=== PATIENT | male | born 1935 | race Caucasian/White ===

== ENCOUNTER 2016-06-25 12:44 | Inpatient (IN) | payer MEDICARE ==
[~2016-06-25] VITALS: Ht 167.6 cm; Wt 86.8 kg
[~2016-06-25 12:44] MED LIST: ACET65TA OR; PRIL20CA OR; VITA250T OR; ZANT150T OR
[2016-06-25 13:33] LABS: BASO % 0.8 % (0.0-1.0); EOS # 0.2 K/mm3 (0.0-0.50); EOS % 3.1 % (0.0-3.0); LARGE UNSTAINED CELL # 0.1 K/mm3 (0.0-0.4); LYMPH # 1.4 K/mm3 (1.5-4.5); LYMPH % 20.8 % (24.0-44.0); MEAN CORPUSCULAR HEMOGLOBIN 32.3 pg (27.0-33.0); MEAN CORPUSCULAR VOLUME 97.8 fl (80.0-96.0); MONO # 0.3 K/mm3 (0.0-0.8); MONO % 4.7 % (0.0-5.0); NEUTROPHILS # 4.2 K/mm3 (1.8-7.7); NEUTROPHILS % 68.6 % (36.0-66.0); PLATELET COUNT, AUTOMATED 150 k/mm3 (150-450); RED CELL DISTRIBUTION WIDTH 12.9 % (11.5-14.5); WHITE BLOOD COUNT 6.1 K/mm3 (4.0-10.0)
[2016-06-25 13:42] LABS: INR 1.21
[2016-06-25 13:52] LABS: ANION GAP 6 MEQ/L (8-16); BLOOD UREA NITROGEN 20 MG/DL (7-18); CARBON DIOXIDE LEVEL 28 MEQ/L (21-32); CHLORIDE LEVEL 109 MEQ/L (98-107); CREATININE FOR GFR 1.32 MG/DL (0.70-1.30); GLOMERULAR FILTRATION RATE 55.3 (>35); GLUCOSE, FASTING 149 MG/DL (83-110); POTASSIUM SERUM 4.3 MEQ/L (3.5-5.1); SODIUM LEVEL 143 MEQ/L (136-145)
--- NOTE | 2016-06-25 14:43 | REP ---
Chest one-view HISTORY: Numbness Comparison: 04/12/2014 The lungs are clear. The heart is normal in size. The pulmonary vasculature is normal in appearance. A cardiac pacemaker is present. Impression: No acute disease. Signed by Tomer Leiva MD 06/25/2016 01:32 P
[2016-06-25] MEDS ORDERED: ONDANSETRON 4MG/2ML VIAL (J2405) IV PRN (14:45)
[2016-06-25] MEDS ORDERED: ACETAMINOPHEN TAB 650MG DOSE (2X325MG) PO PRN (14:45)
[2016-06-25] MEDS ORDERED: AMMO12LO TOP (15:28)
[2016-06-25] MEDS ORDERED: FLUO1CRE2 TOP (15:28)
[2016-06-25] MEDS ORDERED: BETA115CR TOP (15:28)
[2016-06-25] MEDS ORDERED: CO Q200C PO (15:28)
[2016-06-25] MEDS ORDERED: FLON1SPR (15:28)
[2016-06-25] MEDS ORDERED: RANI300T PO (15:28)
[2016-06-25] MEDS ORDERED: OCUVTAB PO (15:28)
[2016-06-25] MEDS ORDERED: VIAG100T PO (15:28)
[2016-06-25] MEDS ORDERED: MIDO5TA PO (15:28)
[2016-06-25] MEDS ORDERED: ASPI1TAB PO (15:28)
[2016-06-25] MEDS ORDERED: LATA5OPD OU (15:28)
[2016-06-25] MEDS ORDERED: MIRA33504 PO (15:28)
[2016-06-25] MEDS ORDERED: GENT0.3G OU (15:28)
[2016-06-25] MEDS ORDERED: TRAM50TA2 PO (15:28)
[2016-06-25] MEDS ORDERED: GLUC500T53 PO (15:28)
[2016-06-25] MEDS ORDERED: ATOR1TAB21 PO (15:28)
[2016-06-25] MEDS ORDERED: OMEP40CA2 PO (15:28)
[2016-06-25] MEDS ORDERED: traMADol 50 MG TAB PO PRN (15:30)
[2016-06-25] MEDS ORDERED: GUAI200T PO (15:33)
[2016-06-25] MEDS ORDERED: SUPE1TAB PO (15:33)
[2016-06-25] MEDS ORDERED: VISITAB6 PO (15:33)
[2016-06-25] MEDS ORDERED: ACET500C PO (15:33)
[2016-06-25] MEDS ORDERED: SAW450CA7 PO (15:33)
[2016-06-25] MEDS ORDERED: FIBE625T PO (15:33)
[2016-06-25] MEDS ORDERED: VITA-122 PO (15:33)
[2016-06-25] MEDS ORDERED: VITA100T PO (15:33)
[2016-06-25] MEDS ORDERED: VITMTA PO (15:33)
[2016-06-25] MEDS ORDERED: ALPRAZolam 0.5 MG TAB PO ONE (15:45)
--- NOTE | 2016-06-25 17:07 | EDDOCDS ---
Physician Documentation [facility] Name: Dipesh Ramirez Age: 81 yrs Sex: Male : 1935 Arrival Date: 06/25/2016 Time: 12:44 Bed 10 Private MD: Hamlet Mars H. Disposition: 06/25/16 14:29 Hospitalization ordered by Alcides Ford for Inpatient Admission. Preliminary diagnosis is Transient cerebral ischemic attack, unspecified. - Bed requested for PCU. - Status is Inpatient Admission. ead - Condition is Stable. - Problem is new. - Symptoms have improved. Historical: - Allergies: Amitriptyline; Augmentin; Biaxin; SULFA (SULFONAMIDES); - Home Meds: 1. aspirin 81 mg oral tab 2 tabs once daily 2. Flonase 50 mcg/actuation Nasal spsn 2 sprays once daily 3. latanoprost 0.005 % ophthalmic drop 1 drop once daily 4. Lipitor 20 mg Oral tab 1 tab once daily 5. midodrine 5 mg oral tab as needed 6. omeprazole 40 mg Oral cpDR 1 cap once daily 7. ranitidine HCl 300 mg Oral cap 1 cap once daily 8. tramadol 50 mg Oral tab 1 tab every 4-6 hours as needed 9. Viagra 100 mg Oral tab 1 tab as needed - PMHx: Atrial Fib; gastroparesis; GERD; hypotension; sick sinus syndrome; Spinal Stenosis; vocal cord granuloma; - PSHx: Arthroscopy. Shoulder- Left; Colon Resection; Hemorrhoidectomy; throat surgery; - Social history: Smoking status: Patient states former smoker of tobacco. No barriers to communication noted, The patient speaks fluent Frisian. - Family history: Not pertinent. - : The pt / caregiver states he / she is not on anticoagulants. Home medication list is obtained from the patient, [employer] import data. - Exposure Risk Screening:: None identified. Vital Signs: 06/25 12:46 BP 147 / 74; Pulse 70; Resp 16; Temp 97.6; Pulse Ox 100% ; Weight 86.18 kg / 189.99 cmb lbs; Height 5 ft. 6 in. (167.64 cm); Pain 0/10; 13:08 BP 164 / 75 (auto/); mcp 13:10 Pulse 56 MON; Pulse Ox 99% ; mcp 13:38 BP 144 / 70 (auto/); mcp 13:38 Pulse 58 MON; Pulse Ox 97% ; mcp 14:08 BP 174 / 78 (auto/); mcp 14:09 Pulse 60 MON; Pulse Ox 98% ; mcp 14:38 BP 158 / 75 (auto/); mcp 14:38 Pulse 58 MON; Pulse Ox 98% ; mcp 16:38 BP 142 / 72; Pulse 58 MON; Resp 18; Temp 97.1(O); Pulse Ox 96% on R/A; Pain 0/10; ead 17:02 BP 137 / 98 (auto/); ead 17:04 Pulse 70 MON; Resp 18; Pulse Ox 96% ; ead 12:46 Body Mass Index 30.67 (86.18 kg, 167.64 cm) cmb MDM: 13:16 Market Development Specialist/Pulse Ox/q 15 min VS ordered. sd1 13:16 IV Saline Lock ordered. sd1 13:16 Rhythm Strip to chart ordered. sd1 13:17 Basic Metabolic Profile Ordered. EDMS 13:17 CBC with Diff Ordered. EDMS 13:17 Partial Thromboplastin Time Ordered. EDMS 13:17 Prothrombin Time Profile\E\INR Ordered. EDMS 13:18 Chest, 1 View Ordered. EDMS 13:18 Type & Screen Ordered. EDMS 13:18 CT Head Without Contrast Ordered. EDMS 13:18 ECG WITH READING ER PHYS+CARDIAG ordered. EDMS 14:10 Basic Metabolic Profile Reviewed. sd1 14:10 CBC with Diff Reviewed. sd1 14:10 Prothrombin Time Profile\E\INR Reviewed. sd1 14:10 Partial Thromboplastin Time Reviewed. sd1 14:13 BED REQUEST+ADM ordered. EDMS 14:33 Admission / Observation Status ordered. EDMS 14:53 REGULAR DIET ordered. EDMS 14:53 MRI Brain W/CON Ordered. EDMS 14:54 MRA BRAIN W/O CONTRAST Ordered. EDMS 14:55 Duplex,carotid (complete) Ordered. EDMS 14:55 ECHOCARD,DOPPLER/COLOR FLOW ordered. EDMS 15:30 Financial registration complete. gjb 15:55 PHYSICAL THERAPY EVAL & TREAT ordered. EDMS 15:58 [facility] [place] Agreement was scanned into [employer] and attached to record. gjb Signatures: Dispatcher [employer] EDMS Adelina Hensley MD MD sd1 Deneen Holden, RN RN Meme Beauchamp RN RN ead Beck, Gabriela gjb Gosselin, Lisa, RN RN lmg The chart was reviewed and I authenticate all verbal orders and agree with the evaluation and treatment provided.Corrections: (The following items were deleted from the chart) 14:46 13:16 Accucheck ordered. sd1 [facility] Attachments: 15:58 [facility] [place] Agreement clarisa MTDD
--- NOTE | 2016-06-25 17:07 | EDDOCDS ---
Nurse's Notes [facility] Name: Dipesh Ramirez Age: 81 yrs Sex: Male : 1935 Arrival Date: 06/25/2016 Time: 12:44 Bed 10 Private MD: Hamlet Mars H. Diagnosis: Transient cerebral ischemic attack, unspecified Presentation: 06/25 12:47 Presenting complaint: Patient states: he has had numbness of his face and left arm kcs since last night. Has a history of a fib and is only on ASA now. Had a bad night because he can feel his pacer running constantly. Feels lightheaded. and has numbness and tingling in the left side of his face. Didn't come in last night because for the last 5 years he has had many similar bouts. Adult Sepsis Screening: The patient does not have new or worsening altered mentation. Patient's respiratory rate is less than 22. Systolic blood pressure is greater than 100. Patient has a qSOFA score of 0- Negative Sepsis Screen. Suicide/Homicide risk assessment- the patient denies having any suicidal and/or homicidal ideations and does not present with any other emotional, behavioral or mental health complaints. 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 Transition of care: patient was not received from another setting of care. 12:47 Acuity: CHRISTY Level 3 kcs 12:47 Method Of Arrival: Walkin/Carried/Asstd kcs Triage Assessment: 12:54 General: Appears comfortable, well developed, well nourished, well groomed, Behavior is kcs cooperative, flat. Pain: Denies pain. Neurological: Level of Consciousness is awake, alert. Respiratory: Airway is patent Respiratory effort is even, unlabored, Respiratory pattern is regular, symmetrical. Derm: Skin is intact, is healthy with good turgor, Skin is dry, Skin is normal. Historical: - Allergies: Amitriptyline; Augmentin; Biaxin; SULFA (SULFONAMIDES); - Home Meds: 1. aspirin 81 mg oral tab 2 tabs once daily 2. Flonase 50 mcg/actuation Nasal spsn 2 sprays once daily 3. latanoprost 0.005 % ophthalmic drop 1 drop once daily 4. Lipitor 20 mg Oral tab 1 tab once daily 5. midodrine 5 mg oral tab as needed 6. omeprazole 40 mg Oral cpDR 1 cap once daily 7. ranitidine HCl 300 mg Oral cap 1 cap once daily 8. tramadol 50 mg Oral tab 1 tab every 4-6 hours as needed 9. Viagra 100 mg Oral tab 1 tab as needed - PMHx: Atrial Fib; gastroparesis; GERD; hypotension; sick sinus syndrome; Spinal Stenosis; vocal cord granuloma; - PSHx: Arthroscopy. Shoulder- Left; Colon Resection; Hemorrhoidectomy; throat surgery; - Social history: Smoking status: Patient states former smoker of tobacco. No barriers to communication noted, The patient speaks fluent [place]. - Family history: Not pertinent. - : The pt / caregiver states he / she is not on anticoagulants. Home medication list is obtained from the patient, [employer] import data. - Exposure Risk Screening:: None identified. Screenin:52 Screening information is obtained from the patient. Fall risk: No risks identified. mcp Assistance ADL's: requires no assistance with activities of daily living. Abuse/DV Screen: The patient / caregiver reports he/she is: not in a situation that causes fear, pain or injury. Nutritional screening: No deficits noted. home support is adequate. Assessment: 13:20 General: Appears in no apparent distress, Behavior is cooperative. Pain: Denies pain. mcp Neurological: Level of Consciousness is awake, alert, Oriented to person, place, time, Moves all extremities. Speech is normal, Facial symmetry appears normal, Reports numbness. Cardiovascular: Rhythm is atrial fibrillation. Respiratory: Airway is patent Respiratory effort is even, unlabored, Breath sounds are clear bilaterally. Derm: Skin is pink, warm & dry. 13:45 Cardiovascular: Rhythm is ventricular pacer with capture. mcp 14:00 General: Appears in no apparent distress, Behavior is cooperative. Cardiovascular: mcp Rhythm is atrial fibrillation. Respiratory: Airway is patent Respiratory effort is even, unlabored. 14:52 General: Appears in no apparent distress, comfortable, Behavior is cooperative. mcp Neurological: Level of Consciousness is awake, alert, Oriented to person, place, time, Moves all extremities. Speech is normal. Cardiovascular: Rhythm is atrial fibrillation. Respiratory: Airway is patent Respiratory effort is even, unlabored. Derm: Skin is pink, warm & dry. 15:35 General: Appears in no apparent distress, comfortable, Behavior is cooperative, Dr. alma rosa Ford at bedside to assess pt. . Respiratory: Airway is patent Respiratory effort is even, unlabored. Derm: Skin is pink, warm & dry. 15:47 General: pacemaker cards faxed to MRI. . ead 16:40 General: Appears in no apparent distress, comfortable, Behavior is appropriate for age, ead cooperative. Neurological: Level of Consciousness is awake, alert, Oriented to person, place, time. Respiratory: Airway is patent Respiratory effort is even, unlabored. Derm: Skin is pink, warm & dry. Vital Signs: 12:46 BP 147 / 74; Pulse 70; Resp 16; Temp 97.6; Pulse Ox 100% ; Weight 86.18 kg; Height 5 cmb ft. 6 in. (167.64 cm); Pain 0/10; 13:08 BP 164 / 75 (auto/); [facility] 13:10 Pulse 56 MON; Pulse Ox 99% ; [facility] 13:38 BP 144 / 70 (auto/); [facility] 13:38 Pulse 58 MON; Pulse Ox 97% ; [facility] 14:08 BP 174 / 78 (auto/); [facility] 14:09 Pulse 60 MON; Pulse Ox 98% ; [facility] 14:38 BP 158 / 75 (auto/); [facility] 14:38 Pulse 58 MON; Pulse Ox 98% ; [facility] 16:38 BP 142 / 72; Pulse 58 MON; Resp 18; Temp 97.1(O); Pulse Ox 96% on R/A; Pain 0/10; ead 17:02 BP 137 / 98 (auto/); ead 17:04 Pulse 70 MON; Resp 18; Pulse Ox 96% ; ead 12:46 Body Mass Index 30.67 (86.18 kg, 167.64 cm) cmb Vitals: 12:47 Log In Time: June 25, 2016 at 12:45. RN notified that patient meets Red Flag cmb criteria. ED Course: 12:44 Patient visited by Jeannine Martínez. cmb 12:44 Patient moved to Waiting cmb 12:46 Hamlet Mars is Private Physician. cmb 12:51 Triage Initiated kcs 13:00 Patient moved to Pre RCE kcs 13:03 Patient moved to 10 ar3 13:20 Inserted saline lock: 20 gauge in left antecubital area and blood collected. The [facility] patient tolerated the procedure well. Labs drawn. (by ED staff). Sent per order to lab. 13:23 Basic Metabolic Profile Sent. mcp 13:23 CBC with Diff Sent. mcp 13:23 Partial Thromboplastin Time Sent. mcp 13:23 Prothrombin Time Profile\E\INR Sent. mcp 13:37 EKG done. (by ED staff). Reviewed by Adelina Hensley MD. ct3 13:38 Patient visited by Azucena Segovia PCA. ct3 13:39 Adelina Hensley MD is Attending Physician. sd1 13:52 Patient visited by Adelina Hensley MD. sd1 14:29 Alcides Ford DO is Hospitalizing Provider. sd1 14:52 The patient / caregiver is instructed regarding the plan of care and ED course. Patient mcp has correct armband on for positive identification. Placed in gown. Bed in low position. Call light in reach. Side rails up X2. improvement specialist on. Pulse ox on. NIBP on. 14:53 Patient visited by Emely Larry, RAY. [facility] 14:55 Patient visited by Emely Larry RN. [facility] 15:01 Meme Ramsey,RAY is Primary Nurse. ead 15:08 Chest, 1 View Returned. EDMS 15:58 [facility] Payment Agreement was scanned into [employer] and attached to record. gjb 16:51 No procedures done that require assistance. ead Order Results: Lab Order: Basic Metabolic Profile; SPEC'M 06/25/16 13:18 Test: GLUCOSE, FASTING; Value: 149; Range: 83-110; Abnormal: Above high normal; Units: MG/DL; Status: F Test: BLOOD UREA NITROGEN; Value: 20; Range: 7-18; Abnormal: Above high normal; Units: MG/DL; Status: F Test: CREATININE FOR GFR; Value: 1.32; Range: 0.70-1.30; Abnormal: Above high normal; Units: MG/DL; Status: F Test: GLOMERULAR FILTRATION RATE; Value: 55.3; Range: >35; Status: F Test: SODIUM LEVEL; Value: 143; Range: 136-145; Units: MEQ/L; Status: F Test: POTASSIUM SERUM; Value: 4.3; Range: 3.5-5.1; Units: MEQ/L; Status: F Test: CHLORIDE LEVEL; Value: 109; Range: 98-107; Abnormal: Above high normal; Units: MEQ/L; Status: F Test: CARBON DIOXIDE LEVEL; Value: 28; Range: 21-32; Units: MEQ/L; Status: F Test: ANION GAP; Value: 6; Range: 8-16; Abnormal: Below low normal; Units: MEQ/L; Status: F Test: CALCIUM LEVEL; Value: 9.0; Range: 8.8-10.2; Units: MG/DL; Status: F Test Note: ; Units are mL/min/1.73 m2 Chronic Kidney Disease Staging per NKF: Stage I & II GFR >=60 Normal to Mildly Decreased Stage III GFR 30-59 Moderately Decreased Stage IV GFR 15-29 Severely Decreased Stage V GFR <15 Very Little GFR Left ESRD GFR <15 on PACKAGE CAR DRIVER Lab Order: CBC with Diff; SPEC'M 06/25/16 13:18 Test: WHITE BLOOD COUNT; Value: 6.1; Range: 4.0-10.0; Units: K/mm3; Status: F Test: RED BLOOD COUNT; Value: 4.37; Range: 4.30-6.10; Units: M/mm3; Status: F Test: HEMOGLOBIN; Value: 14.1; Range: 14.0-18.0; Units: g/dl; Status: F Test: HEMATOCRIT; Value: 42.7; Range: 42.0-52.0; Units: %; Status: F Test: MEAN CORPUSCULAR VOLUME; Value: 97.8; Range: 80.0-96.0; Abnormal: Above high normal; Units: fl; Status: F Test: MEAN CORPUSCULAR HEMOGLOBIN; Value: 32.3; Range: 27.0-33.0; Units: pg; Status: F Test: MEAN CORPUSCULAR HGB CONC; Value: 33.0; Range: 32.0-36.5; Units: g/dl; Status: F Test: RED CELL DISTRIBUTION WIDTH; Value: 12.9; Range: 11.5-14.5; Units: %; Status: F Test: PLATELET COUNT, AUTOMATED; Value: 150; Range: 150-450; Units: k/mm3; Status: F Test: NEUTROPHILS %; Value: 68.6; Range: 36.0-66.0; Abnormal: Above high normal; Units: %; Status: F Test: LYMPH %; Value: 20.8; Range: 24.0-44.0; Abnormal: Below low normal; Units: %; Status: F Test: MONO %; Value: 4.7; Range: 0.0-5.0; Units: %; Status: F Test: EOS %; Value: 3.1; Range: 0.0-3.0; Abnormal: Above high normal; Units: %; Status: F Test: BASO %; Value: 0.8; Range: 0.0-1.0; Units: %; Status: F Test: LARGE UNSTAINED CELL %; Value: 2.0; Range: 0.0-4.0; Units: %; Status: F Test: NEUTROPHILS #; Value: 4.2; Range: 1.8-7.7; Units: K/mm3; Status: F Test: LYMPH #; Value: 1.4; Range: 1.5-4.5; Abnormal: Below low normal; Units: K/mm3; Status: F Test: MONO #; Value: 0.3; Range: 0.0-0.8; Units: K/mm3; Status: F Test: EOS #; Value: 0.2; Range: 0.0-0.50; Units: K/mm3; Status: F Test: BASO #; Value: 0.0; Range: 0.0-0.2; Units: K/mm3; Status: F Test: LARGE UNSTAINED CELL #; Value: 0.1; Range: 0.0-0.4; Units: K/mm3; Status: F Lab Order: Partial Thromboplastin Time; SPEC'M 06/25/16 13:18 Test: PARTIAL THROMBOPLASTIN TIME; Value: 28.7; Range: 26.6-37.1; Units: SECONDS; Status: F Lab Order: Prothrombin Time Profile\E\INR; SPEC'M 06/25/16 13:18 Test: PROTHROMBIN TIME; Value: 15.4; Range: 12.3-14.5; Abnormal: Above high normal; Units: SECONDS; Status: F Test: INR; Value: 1.21; Status: F Test Note: ; THERAPUTIC HUMAN INR VALUES INDICATIONS NORMAL RANGES PROPHYLAXIS/TREATMENT OF: VENOUS THROMBOSIS 2.0-3.0 PULMONARY EMBOLISM 2.0-3.0 PREVENTION OF SYSTEMIC EMBOLISM FROM: TISSUE HEART VALVES 2.0-3.0 ACUTE MYOCARDIAL INFARCTION 2.0-3.0 VALVULAR HEART DISEASE 2.0-3.0 ATRIAL FIBRILLATION 2.0-3.0 MECHANICAL VALVES(HIGH RISK) 2.5-3.5 RECURRENT MYOCARDIAL INFARCTION 2.5-3.5 Lab Order: Type & Screen; SPEC'M 06/25/16 15:19 Test: BLOOD TYPE; Value: O POS; Status: F Test: AB SCREEN (INDIRECT SHANNON)GEL; Value: NEGATIVE; Status: F Radiology Order: Chest, 1 View Test: Chest, 1 View REASON FOR EXAMINATION: numbness; Chest one-view; ; HISTORY: Numbness; ; Comparison: 04/12/2014; ; The lungs are clear. The heart is normal in size. The pulmonary vasculature is; normal in appearance. A cardiac pacemaker is present.; ; Impression: No acute disease.; ; ; Signed by; Tomer Leiva MD 06/25/2016 01:32 P; Outcome: 14:29 Decision to Hospitalize by Provider. sd1 16:40 CT Study completed. ead 16:51 Discharge Assessment: Patient awake and alert. obeys commands, Oriented to person, ead place and time. patient administered narcotics - no. The following High Risk Discharge criteria are identified: None. Admitted to PCU accompanied by nurse, via stretcher, on monitor, with chart. Condition: stable. Property :Personal belongings accompany Pt. 17:07 Patient left the ED. ead Signatures: Dispatcher [employer] Adelina Carlos MD MD sd1 Deneen Holden RN RN kcs Peters, Mary, RN RN mcp Rabon, Alicia, EMERGENCY MANAGEMENT COORDINATOR EMERGENCY MANAGEMENT COORDINATOR ar3 Azucena Segovia, EMERGENCY MANAGEMENT COORDINATOR EMERGENCY MANAGEMENT COORDINATOR ct3 Jeannine Martínez Emily, RN RN ead Beck, Gabriela gjb MTDD
[2016-06-25 17:32] VITALS: BP 142/82
[2016-06-25] MEDS: VITAMIN D 1,000 INTERNATIONAL UNITS TABLET PO SCH (18:19)
--- NOTE | 2016-06-25 18:23 | REP ---
CT brain without contrast 06/25/2016 Indication: Paresthesias Comparison: CT brain 09/01/2010 Findings: There is mild generalized cerebral volume loss. Small amount of periventricular and subcortical white matter hypodensities are present consistent with chronic small vessel ischemic disease. There is no intracranial hemorrhage or extra-axial fluid collection. There is no midline shift or mass effect. There are moderate bilateral carotid siphon calcifications. There is patchy opacification of bilateral ethmoid sinuses, left greater than right. Visualized portions of the mastoid sinuses are clear bilaterally. The skull is without fracture. Impression: mild generalized cerebral volume loss with chronic small vessel ischemic disease. No acute intracranial pathology or hemorrhage. Bilateral moderate opacification of the ethmoid sinuses, left greater than right consistent with bilateral ethmoid sinusitis Signed by Kortney Hawley MD 06/25/2016 06:13 P
--- NOTE | 2016-06-25 18:34 | HPE ---
DATE OF ADMISSION: 06/25/2016 PRIMARY CARE PROVIDER: Dr. Hamlet Mars TEARER PRESS CLIPPING: Dr. Clifton NEUROLOGIST: Dr. Andujar CHIEF COMPLAINT: Left-sided facial numbness, left arm numbness and weakness occurred last night, history of atrial fibrillation currently only on aspirin 162 mg daily. Apparently, he had a bad episode on Eliquis with quite a bit of hematuria and Dr. Clifton had switched him recently to the aspirin. He feels that his symptomatology is much improved. He has no slurred speech. No difficulty with swallow. Appetite has been good. No mental status changes. He is accompanied here with his and she feels that his symptomatology is almost completely resolved at this point. No chest pain, shortness of breath, cough, or productive sputum. No nausea or vomiting. PAST MEDICAL HISTORY: 1. History of atrial fibrillation, sick sinus syndrome status post pacer which is supposedly MRI, MRA compatible. He does have a copy of the card for the chart. 2. Gastroparesis. 3. Gastroesophageal reflux disease (GERD). 4. History of hypotension. 5. Sick sinus syndrome. 6. Spinal stenosis. 7. Vocal cord granuloma. 8. Seasonal allergies. PAST SURGICAL HISTORY: 1. Left shoulder arthroscopy. 2. Colon resection/hemorrhoidectomy. 3. Throat surgery. SOCIAL HISTORY: He is a former smoker. No alcohol. No recent travel. No sick contacts. FAMILY HISTORY: Noncontributory. ALLERGIES: AMITRIPTYLINE, AUGMENTIN, BIAXIN, SULFA. HOME MEDICATIONS: - aspirin 162 mg daily - Flonase nasal spray two sprays once daily - latanoprost ophthalmic drops one drop in each eye daily - Lipitor 20 mg daily - midodrine 5 mg daily as needed - omeprazole 40 mg daily - ranitidine 300 mg daily - tramadol 50 mg every 4-6 hours as needed for back pain - Viagra 100 mg daily as needed REVIEW OF SYSTEMS: CONSTITUTIONAL: He denies fevers, chills, rigors, or change in appetite. HEENT: He did have some left-sided facial numbness which seems to have abated. No difficulty with speech or swallow. PULMONARY: No productive sputum, cough, or hemoptysis. No shortness of breath. CARDIOVASCULAR: History of atrial fibrillation, currently only on aspirin. No paroxysmal nocturnal dyspnea (PND), orthopnea, or chest pain. He did feel that his pacemaker was producing more heartbeats last evening and apparently he is under the impression that this is a demand pacing. GASTROINTESTINAL: No nausea, vomiting, or diarrhea. Appetite is good. He denies any hematochezia or melena. GENITOURINARY: No dysuria, frequency, or hematuria. MUSCULOSKELETAL: No bone, muscle or joint pain, swelling, or erythema. He does state that he had some left arm and leg numbness with some slight weakness but feels that this is almost back to his baseline. NEUROLOGIC: As indicated above, left sided facial and arm numbness and weakness which is almost completely resolved. No paralysis. LYMPHATICS: No lumps, bumps or swelling in the neck, axilla or groin. No fevers, night sweats, or weight loss. ENDOCRINE: Negative for diabetes. Negative for thyroid disorder. HEMATOLOGY: No bleeding or bruising disorder. No prior history of venous thromboembolism. ONCOLOGY: No history of cancer. PSYCHIATRIC: No history of depression or anxiety. No suicidal ideation. No audio or visual hallucinations. Ten-point review of systems complete, pertinent positives are listed. PHYSICAL EXAMINATION: VITAL SIGNS: Temperature is 97.6, respiratory rate is 16, pulse 70, blood pressure 147/74, SPO2 is 100% on room air. GENERAL: The patient appears to be in no acute distress. He is alert and oriented. HEENT: Unremarkable. No carotid bruits. LUNGS: Clear. HEART: Regular rate and rhythm. ABDOMEN: Soft. EXTREMITIES: No edema. No calf tenderness. Computer Sales[employer] strength is equal. Motor is equal bilaterally with 5/5 strength. NEUROLOGIC: Cranial nerves II-XII grossly intact. He does not demonstrate any gross motor sensory abnormalities. No deficits noted at this time. Babinski is equivocal. LABORATORY DATA AND DIAGNOSTICS: White count 6.1, hemoglobin 14.1, platelets 150,000. Sodium is 143, potassium 4.3, chloride 109, bicarbonate 28, anion gap 6, BUN is 20, creatinine 1.32, glucose 149, calcium 9.0, INR is 1.21. Chest x-ray is clear with no acute cardiopulmonary disease. Head CT shows mild generalized cerebral volume loss with chronic small vessel ischemic disease. No acute intracranial pathology or hemorrhage, bilateral moderate opacification of the ethmoid sinus, left greater than right consistent with bilateral ethmoid sinusitis, otherwise no acute findings. Please note that the 12-lead EKG shows first-degree atrioventricular (AV) block with ventricular rate of 55. No acute ST-T wave abnormalities. IMPRESSION: Mr. Ramirez is a pleasant 81-year-old gentleman with underlying history of atrial fibrillation. He does have a carotid artery stenosis on a previous carotid ultrasound done several years ago with stenosis of 50% bilaterally. He will need to be admitted for further workup of possible transient ischemic attack (TIA). PROBLEM LIST: 1. Transient ischemic attack (TIA). 2. Left-sided facial and arm numbness/weakness. 3. History of atrial fibrillation with sick sinus syndrome and pacemaker. Apparently, this is likely paroxysmal and not currently on anticoagulation due to hematuria on Eliquis, currently on aspirin. 4. Gastroesophageal reflux disease (GERD). 5. Hypotension. 6. Sick sinus syndrome. 7. Spinal stenosis. 8. History of vocal cord granuloma. 9. Seasonal allergies. PLAN: The patient will be admitted to the progressive care unit (PCU) on telemetry. We will go ahead and check an MRI/MRA of the brain since his pacer is compatible. An ultrasound of the carotids and 2-D echocardiogram is pending as well. I did consult Dr. Andujar who has agreed to see the patient on consultation. We will await any further changes in his medications. Currently, he is on aspirin 162 mg daily and I did reach out to his primary care provider Dr. Mars as well as Dr. Clifton to let them know that the patient is being hospitalized for the current workup. Deep vein thrombosis (DVT) prophylaxis with subcutaneous heparin. Also noted that the patient's NIH stroke score was 1 and he is outside any window and t-PA is not advised for the patient. His current prognosis does appear to be good. We will go ahead and finish the workup. We will also have physical therapy evaluate him as well.
[2016-06-25 20:31] VITALS: BP 142/73
[2016-06-25] MEDS: ATORVASTATIN 20 MG TAB PO SCH (22:04)
[2016-06-25] MEDS: HEPARIN SOD (PORCINE) 5000 UNITS/ML VIAL SC SCH (22:04)
[2016-06-25] MEDS: DOCUSATE SODIUM 100 MG CAP PO SCH (22:04)
[2016-06-25] MEDS: raNITIdine SYRUP 150 MG/10 ML UDC PO SCH (22:05)
[2016-06-25 23:10] LABS: TOTAL PROTEIN 5.9 GM/DL (6.4-8.2)
[2016-06-25] MEDS ORDERED: POLYVINYL ALCOHOL OPHTH SOLN 15 ML(LIQUITEARS) OU PRN (23:15)
--- NOTE | 2016-06-25 23:45 | REP ---
Clinical: Transient ischemic attack. Technique: Beltran scale and color Doppler evaluation using linear high frequency transducer. Comparison: Multiple examinations through 2007. Findings: Two-dimensional beltran scale and color images demonstrate intimal thickening to the common carotid arteries with mixed atheromatous plaque predominantly involving the right carotid bulb and proximal internal carotid arteries and to a much lesser extent the bilateral common carotid arteries and left proximal internal carotid artery. Color images demonstrate mild narrowing through the right carotid bulb and internal carotid artery. Doppler interrogation demonstrates normal arterial wave patterns and velocities with moderate spectral broadening. Normal flow direction is appreciated in the bilateral vertebral arteries. RIGHT (cm/s) LEFT (cm/s) ICA peak systolic velocity 39.2 36.5 ICA diastolic velocity 9.0 10.3 ECA peak systolic velocity 40.7 63.2 CCA peak systolic velocity 61.4 55.9 ICA/CCA ratio 0.64 0.65 Impression: Based on set standards narrowing falls within the less than 50% range (right greater than left) . However, by visual inspection I suspect velocities underestimate narrowing through the right carotid bulb/internal carotid artery which may fall in the 50 - 69% range. MRA may better estimate actual luminal narrowing. Signed by Agapito Lopez MD 06/25/2016 11:37 P
[2016-06-25 23:57] VITALS: BP 170/78
[2016-06-25 23:57] LABS: ERYTHROCYTE SEDIMENTATION RATE 4 mm/hr (0-20)
[2016-06-26 04:36] VITALS: BP 135/71
--- NOTE | 2016-06-26 04:45 | CR ---
DATE OF CONSULTATION: 06/25/2016 REFERRING PHYSICIAN: Dr. Ford. HISTORY: The patient is an 81-year-old male who presents to the emergency room (ER) here at the [facility] secondary to complaints of left facial and arm paresthesias with mild weakness of the left arm. According to the patient, his symptom started on Friday, which is about 3 days ago. At that time , he did experience some chest palpitations. In the past, he did have some associated tingling in his left arm whenever he had chest palpitations. He did not pay attention to it and he woke up this morning at about 3 o'clock and noticed that he had increased tingling sensation in his left hand extending into the forearm going up to the elbow. He also had some tingling sensation on his left side of the face at that time. He did not have any symptoms in his left leg. He denies having any associated headache, dizzy spells, vertigo, diplopia, blurred vision, dysarthria and dysphagia. He was fairly stable on his feet as well. Because his father had a stroke at this age, he came to the ER at the [facility]. He is now in the ER with the complaint of warm sensation that he is experiencing on the left side of his face. The numbness that he had associated with tingling has, however, resolved from the face. He does feel mildly weak and tired in his left arm. There is some tingling sensation still in his left forearm extending into his hand. He does get dizzy intermittently, but beyond that, he does not have any other neurological complaints. Overall, he feels that he is better than before but his symptoms are still there. He has known history of atrial fibrillation for which he is currently on aspirin 162 mg daily. He was on Eliquis, but it was discontinued because of hematuria. His other medications include Flonase nasal spray, Lipitor 20 mg daily, midodrine, omeprazole, ranitidine and tramadol 50 mg 4-6 hours as necessary for pain. He has known history of chronic low back pain for which he has been worked up during the past. Currently, his low back pain does not seem to be bothering him. There is no complaint of any neck or shoulder pain. He denies pain in his arms otherwise. He has not noticed resting or postural tremors of the hands. His CT scan of the brain does show small vessel ischemic disease. He has not been able to get his MRI of the brain yet because of his pacemaker. PAST MEDICAL HISTORY: 1. Orthostatic hypotension. 2. Gastroesophageal reflux disease (GERD). 3. Gastroparesis. 4. Sick sinus syndrome 5. Lumbosacral spinal stenosis. 6. Vocal cord granuloma. 7. Seasonal allergies. 8. Left shoulder surgery. 9. Colon resection/hemorrhoidectomy. FAMILY HISTORY: The patient's mother and father are both . His father suffered from a stroke when he was about 83 years old. PERSONAL AND SOCIAL HISTORY: The patient lives with his . There is no history of smoking or alcohol abuse at the present time. All other systems were reviewed and found to be noncontributory. PHYSICAL EXAMINATION: On examination, the patient does not appear in any discomfort. He is pleasant to interact with. His posture is normal. His blood pressure is 140/70. Pulse is 60 per minute. Respirations are 18 per minute. His temperature is 98.4 degrees Fahrenheit. He is 5 feet 6 inches tall. He weighs about 86.8 kg. His neck is supple. There is no carotid bruit audible. His ear, nose and throat examination is normal. His lungs are clear to auscultation. His heart is regular in rhythm. His abdomen is soft and nondistended. There is no ankle edema seen. The peripheral pulses are normally palpable. Neurologically, he is oriented to time and place. His speech is fluent. Extraocular movements are intact. There is no horizontal or vertical nystagmus seen. His pupils are about 3 mm in size and reactive to light. The consensual light reflex is present bilaterally. Visual perez appear to be within normal limits. His face is symmetrical. His tongue is midline. His motor examination does show mild left-sided pronator drift. He is not weak otherwise both in his upper and lower extremities. He does not have any resting or postural tremors of the hands. His muscle tone is normal. The sensory examination is also within normal limits. Deep tendon reflexes are 2+ and symmetrical with an equivocal plantar reflex on the right side. Romberg' s testing is not performed. His gait is not tested. DIAGNOSTIC STUDIES: The patient's CBC shows a white cell count of 6100, hemoglobin 14.1, hematocrit 42.7, and platelets 150,000. His sodium is 143, potassium 4.3, BUN 20, and creatinine 1.32. His calcium level is 9. His prothrombin time is 1.21, INR. His CT scan of the brain, which was performed this morning, does show evidence of small vessel ischemic disease. There is also mild generalized cerebral volume loss. ASSESSMENT: 1. Left facial and arm paresthesias. 2. Mild left arm weakness. 3. R/O right CVA. 4. History of atrial fibrillation. 5. History of chronic low back pain. PLAN: 1. MRI/MRA of the brain if his pacemaker is compatible with MRI machine. 2. ESR, KALYAN, rheumatoid factor and lupus anticoagulant. 3. Vitamin B1, B6 and B12 levels. 4. Carotid duplex study. 5. Aspirin 162 mg by mouth daily. 7. Continue with other care. Thank you very much for this consultation. NITA
[2016-06-26 05:54] LABS: MEAN CORPUSCULAR HEMOGLOBIN 32.5 pg (27.0-33.0); MEAN CORPUSCULAR VOLUME 98.6 fl (80.0-96.0); RED CELL DISTRIBUTION WIDTH 12.8 % (11.5-14.5); WHITE BLOOD COUNT 6.4 K/mm3 (4.0-10.0)
[2016-06-26 06:05] LABS: ALBUMIN 3.2 GM/DL (3.2-5.2); CALCIUM LEVEL 8.4 MG/DL (8.8-10.2); CREATININE FOR GFR 1.32 MG/DL (0.70-1.30); GLOMERULAR FILTRATION RATE 55.3 (>35); PHOSPHORUS LEVEL 2.8 MG/DL (2.5-4.9); POTASSIUM SERUM 4.1 MEQ/L (3.5-5.1)
[2016-06-26] MEDS: HEPARIN SOD (PORCINE) 5000 UNITS/ML VIAL SC SCH ×3 (06:42→21:15)
[2016-06-26] MEDS ORDERED: ALPRAZolam 0.5 MG TAB PO SCH (07:00)
[2016-06-26 07:30] VITALS: BP 148/72
[2016-06-26] MEDS: DOCUSATE SODIUM 100 MG CAP PO SCH ×2 (08:46→21:15)
[2016-06-26] MEDS: OMEPRAZOLE 20 MG CAP PO SCH (08:46)
[2016-06-26] MEDS: FLUTICASONE PROP 0.05% NASAL SPRAY 16 GM (FLONASE) SCH (08:46)
[2016-06-26] MEDS: ASPIRIN 81 MG CHEW TABLET PO SCH (08:46)
[2016-06-26] MEDS: MIRALAX *UNIT DOSE* 17GM PACKET PO SCH (08:46)
[2016-06-26] MEDS: MULTIVITAMINS/MINERALS THERAP 1 TAB PO SCH (08:46)
[2016-06-26] MEDS ORDERED: GLYCERIN ADULT SUPP PR ONE (09:00)
[2016-06-26 12:00] VITALS: BP 128/62
--- NOTE | 2016-06-26 12:31 | IPNPDOC ---
Text Note Date of Service The patient was seen on 06/26/16 at 12:11. NOTE Subjective: Patient is an 81 year old male with a PMHx of atrial fibrillation (on aspirin for anticoagulation - taken off anticoagulation with Eliquis for hematuria), SSS s/p pacemaker, gastroparesis, GERD, Hypotension, Spinal stenosis, and vocal cord granuloma who presented to the ER with left sided facial and arm numbness / weakness. He had this happen 1/3 PM and resolved in the emergency room. Patient was seen and examined at the bedside. Has no new complaints. Objective: Vitals (see below) General: Lying in bed, no acute distress, AAOx3 HEENT: NC, AT CVS: Irregularly irregular, +S1S2 Lungs: Fair air entry b/l, - w/r/r Abdomen: Soft, ND, NT, +BSx4 Extremities: +PPx4, - Edema, - Calf tenderness Neuro: CN2-12 grossly intact, 5/5 muscle strength in left and right / upper and lower extremities Assessment and plan: 1. Left facial / arm weakness & numbness - likely 2/2 TIA - Clinically has no focal weakness at this point - CT head: no acute intracranial pathology / hemorrhage - US carotid with 50-60% stenosis at R, <50% at L - MRI/MRA pending, 2D-ECHO pending - Hypercoagulability workup pending - c/w ASA 162 - Neurology following (Dr. Andujar) - appreciate their input 2. Atrial fibrillation with SSS - s/p pacemaker - not on rate control - currenlty on aspirin, re: hematuria with Eliquis 3. Hypotension 4. Spinal stenosis 5. History of vocal cord granuloma 6. Seasonal allergies 7. GERD - c/w ranitidine 8. DVT prophylaxis - c/w Heparin VS,Fishbone, I+O VS, Fishbone, I+O Laboratory Tests 06/25/16 13:18 Calcium Level 9.0, Red Blood Count 4.37, Mean Corpuscular Volume 97.8 H, Mean Corpuscular Hemoglobin 32.3, Mean Corpuscular Hemoglobin Concent 33.0, Red Cell Distribution Width 12.9, Neutrophils (%) (Auto) 68.6 H, Lymphocytes (%) (Auto) 20.8 L, Monocytes (%) (Auto) 4.7, Eosinophils (%) (Auto) 3.1 H, Basophils (%) ( Auto) 0.8, Neutrophils # (Auto) 4.2, Lymphocytes # (Auto) 1.4 L, Monocytes # ( Auto) 0.3, Eosinophils # (Auto) 0.2, Basophils # (Auto) 0.0 06/26/16 05:29 Red Blood Count 4.14 L, Mean Corpuscular Volume 98.6 H, Mean Corpuscular Hemoglobin 32.5, Mean Corpuscular Hemoglobin Concent 33.0, Red Cell Distribution Width 12.8, Anion Gap 6 L Vital Signs Date Time Temp Pulse Resp B/P Pulse Ox O2 Delivery O2 Flow Rate FiO2 06/26/16 07:55 Room Air 06/26/16 07:30 98.0 82 18 148/72 96 I&O- Last 24 Hours up to 6 AM 06/26/16 06:00 Intake Total 360 ml Output Total 600 ml Balance -240 ml AMISH SPANN MD Jun 26, 2016 12:31
[2016-06-26] MEDS: VITAMIN D 1,000 INTERNATIONAL UNITS TABLET PO SCH ×2 (13:09→18:02)
--- NOTE | 2016-06-26 15:49 | ECHO ---
DATE OF PROCEDURE: 06/26/2016 REFERRING PHYSICIAN: Alcides Ford MD AGE: 81 GENDER: Male HEIGHT: 66 inches WEIGHT: 190 pounds BODY SURFACE AREA: 1.96 sq m PATIENT LOCATION: Inpatient, PCU, room 3226 INDICATION: Transient ischemic attack (TIA), question cardiac source of embolic material. 2-D MEASUREMENTS: RV: 4.0 cm LV: 3.8 cm Septum: 1.4 cm Posterior wall: 1.3 cm Aortic root: 4.0 cm LA: 4.2 cm LVEF: 65% DOPPLER MEASUREMENTS: AV: 1.2 m/s LVOT: 0.92 m/s LVOT diameter: 2.3 cm MV-E: 74, A: 82, EA ratio: 0.9 Early mitral deceleration time: 296 ms PV: 0.8 m/s Pulmonary artery acceleration time; 148 ms RVSP: 28 mmHg IVC: 1.8 cm COMMENTS: Normal sinus rhythm without intraventricular conduction disturbance. Technically challenging study in light of the patient's body habitus, but diagnostically useful information was still obtained. Mildly dilated left atrium, but normal left ventricular size. Right heart chambers were also normal in size. Left ventricle (LV) wall thickness was mildly increased symmetrically. On real-time imaging from the parasternal and apical projections wall motion was symmetrical and normal. Slightly thickened mitral annulus, but normal leaflet thickness and excursion with no posterior systolic buckling. Three equal sized aortic cusps with mildly thickened cusp edges, but adequate cusp separation. Mildly dilated aortic root. No apparent intracardiac mass or pericardial effusion. Color flow Doppler study taken from the parasternal and apical projection showed mild aortic, mild-moderate mitral, and mild tricuspid insufficiency. Guided continuous wave Doppler of his aortic valve showed a normal peak systolic velocity against LV outflow tract obstruction. Pulsed and continuous wave Doppler of his LV inflow tract taken from the apical four-chamber projection showed normal diastolic filling velocities against mitral stenosis. There was more prominent late diastolic/atrial dependent filling pattern. A degree of LV diastolic dysfunction was further confirmed by a prolonged early mitral deceleration time. Pulsed and continuous wave Doppler of his pulmonary trunk showed a normal peak systolic velocity against right ventricle (RV) outflow tract obstruction. His pulmonary artery acceleration time was normal against an elevated pulmonary vascular resistance. Guided continuous wave Doppler of his tricuspid valve allowed our estimation of his right ventricular systolic pressure (upper limits of normal). His inferior vena cava was of normal size with normal respiratory collapse against an elevated central venous pressure. CONCLUSIONS: Somewhat technically challenging in light of the patient's body habitus. An intracardiac source of embolic material. Degenerative changes of his valvular structures, but no visualized pedunculated mass. Mildly dilated aortic root and mild aortic valvular sclerosis without stenosis and only very mild insufficiency. Mild mitral annular calcification without inflow tract obstruction, but mild to moderate insufficiency. Mild concentric left ventricular hypertrophy with hyperkinetic wall motion. Mildly dilated left atrium with Doppler evidence of an impairment of LV diastolic function. Normal right heart chamber sizes and estimated pulmonary arterial and central venous pressures. If a cardiac source of embolic material is seriously suspect, we would recommend proceeding with transesophageal echocardiography.
[2016-06-26 16:00] VITALS: BP 128/60
--- NOTE | 2016-06-26 19:41 | ECGEPIP ---
Stationary ECG Study [facility] - ED Test Date: 2016-06-25 Pat Name: PATIENCE CHAVEZ Department: Room: [place] [address] Gender: M Legal Support Analyst: ct : 1935 Requested By: Adelina Hensley Order Number: [id number] Reading MD: Adelina Hensley Measurements Intervals [place] Rate: 60 P: -61 [place]: 309 QRS: -15 QRSD: 85 T: -42 QT: 393 QTc: 393 Interpretive Statements SINUS RHYTHM WITH FIRST DEGREE AV BLOCK ST DEVIATION AND MODERATE T-WAVE ABNORMALITY, CONSIDER ISCHEMIA, MORE PRONOUNCED COMPARED 06/25/15 13:15 Electronically Signed On 06-26-2016 19:40:53 EST by Adelina Hensley
[2016-06-26 19:52] VITALS: BP 108/65
[2016-06-26] MEDS: ATORVASTATIN 20 MG TAB PO SCH (21:15)
[2016-06-26] MEDS: raNITIdine SYRUP 150 MG/10 ML UDC PO SCH (21:15)
[2016-06-27] VITALS: BP 103/58
[2016-06-27 04:00] VITALS: BP 97/50
[2016-06-27] MEDS: HEPARIN SOD (PORCINE) 5000 UNITS/ML VIAL SC SCH (05:58)
[2016-06-27 06:24] LABS: MEAN CORPUSCULAR HEMOGLOBIN 32.3 pg (27.0-33.0); MEAN CORPUSCULAR VOLUME 97.9 fl (80.0-96.0); RED CELL DISTRIBUTION WIDTH 12.1 % (11.5-14.5); WHITE BLOOD COUNT 5.4 K/mm3 (4.0-10.0)
[2016-06-27 06:40] LABS: CALCIUM LEVEL 8.3 MG/DL (8.8-10.2); CREATININE FOR GFR 1.37 MG/DL (0.70-1.30); PHOSPHORUS LEVEL 3.1 MG/DL (2.5-4.9); POTASSIUM SERUM 3.8 MEQ/L (3.5-5.1)
[2016-06-27 08:00] VITALS: BP 119/79
--- NOTE | 2016-06-27 08:38 | REP ---
MRA BRAIN WITHOUT CONTRAST: HISTORY: Facial weakness. 3D [id number] MR angiography was performed at the level of the [place]. There is no aneurysm or arteriovenous malformation. Mild atherosclerotic disease involves the cavernous and supraclinoid internal carotid arteries , right middle cerebral artery trifurcation and distal right vertebral artery. Major intracranial vessels are patent. The left vertebral artery is dominant. IMPRESSION: 1. There is no aneurysm or arteriovenous malformation. 2. Atherosclerotic disease as described above. Signed by Tomer Leiva MD 06/27/2016 08:54 A
--- NOTE | 2016-06-27 08:40 | REP ---
MR BRAIN WITHOUT AND WITH CONTRAST: HISTORY: Facial weakness. Contrast: ProHance 12 mL. Several punctate areas of increased signal intensity on T2-weighted images are present in the periventricular and subcortical white matter. This represents small vessel ischemic disease. There is no intraparenchymal hemorrhage, infarct, mass or midline shift. There is no abnormal enhancement. The ventricular system and cortical sulci are dilated consistent with mild volume loss. There is no extracerebral collection. Mucosal thickening is present in the ethmoid and right maxillary sinuses. IMPRESSION: 1. Small vessel ischemic disease. 2. Mild volume loss. Signed by Tomer Leiva MD 06/27/2016 08:54 A
--- NOTE | 2016-06-27 08:46 | REP ---
MRA CAROTIDS WITHOUT AND WITH CONTRAST: HISTORY: Facial weakness. CONTRAST: ProHance 12 mL. Unenhanced 2D [id number] and contrast enhanced MR angiography were performed at the level of the carotid bifurcations. There is mild stenosis of 25% of the right internal carotid artery at its origin. The origin of the right external carotid artery is normal. The distal left common carotid artery and origins of the left external and internal carotid arteries are normal. Mild atherosclerotic disease involves the distal right vertebral artery. The vertebral arteries are patent. The left vertebral artery is dominant. IMPRESSION: 1. Mild stenosis of 25% of the right internal carotid artery at its origin. 2. Mild atherosclerotic disease involves the distal right vertebral artery. Signed by Tomer Leiva MD 06/27/2016 08:55 A
[2016-06-27] MEDS: DOCUSATE SODIUM 100 MG CAP PO SCH (08:59)
[2016-06-27] MEDS: MULTIVITAMINS/MINERALS THERAP 1 TAB PO SCH (08:59)
[2016-06-27] MEDS: MIRALAX *UNIT DOSE* 17GM PACKET PO SCH (08:59)
[2016-06-27] MEDS: ASPIRIN 81 MG CHEW TABLET PO SCH (08:59)
[2016-06-27] MEDS: OMEPRAZOLE 20 MG CAP PO SCH (08:59)
[2016-06-27] MEDS: FLUTICASONE PROP 0.05% NASAL SPRAY 16 GM (FLONASE) SCH (08:59)
[2016-06-27 13:57] LABS: ALBUMIN 3.62 GM/DL (3.29-5.55); ALBUMIN % 61.3 % (55.8-66.1); GAMMA GLOBULIN % 10.1 % (11.1-18.8)
--- NOTE | 2016-06-27 15:32 | DSES ---
DATE OF ADMISSION: 06/25/2016 DATE OF DISCHARGE: 06/27/2016 ATTENDING PHYSICIAN: Chriss Thornton MD PRIMARY CARE PHYSICIAN: Hamlet Mars MD REFERRING PHYSICIAN: None. CONSULTING PHYSICIANS: Durga Andujar MD CONDITION ON DISCHARGE: Stable. FINAL DIAGNOSIS: Transient ischemic attack (TIA) versus reversible ischemic neurologic deficit. PROCEDURES: None. HISTORY OF PRESENT ILLNESS: Patient is an 81-year-old male with a past medical history of atrial fibrillation, on aspirin for anticoagulation, he was taken off Eliquis because of hematuria, sick sinus syndrome, status post pacemaker, gastroparesis, gastroesophageal reflux disease (GERD), hypotension, spinal stenosis, and vocal cord granuloma, who presented to the emergency room with left-sided facial and arm numbness and tingling. He had this happen about 06/25/2016 in the evening and it resolved upon presentation to the emergency room. HOSPITAL COURSE: 1. Left-sided facial/arm weakness and numbness, likely secondary to TIA versus reversible ischemic neurologic deficit. Clinically he has no focal weakness at this point. CT head was negative for any acute intracranial pathology or hemorrhage. Ultrasound of carotids revealed 50-60% stenosis at the right and less than 50% on the left. Patient had MRI and MRA of the head completed which revealed no aneurysm or arteriovenous (AV) malformation, atherosclerotic disease was noted, small vessel ischemic disease, and mild volume loss. Patient also had carotid artery MRI which revealed that there was mild stenosis of 25% of the right internal carotid artery at its origin and mild atherosclerotic disease involving the distal right vertebral artery. Patient had echocardiogram which did not reveal any reasons for his TIA. Patient was kept on telemetry throughout his hospital stay. Electrocardiogram in the emergency room revealed sinus rhythm with first degree atrioventricular (AV) block. Patient had a hypercoagulability workup completed as an inpatient, however it remains pending and he will followup with Dr. nAdujar as an outpatient to followup on the results. He is to continue with aspirin 162 mg. 2. Atrial fibrillation with sick sinus syndrome status post pacemaker. Not on any rate control. Currently on aspirin. Eliquis was discontinued because of hematuria. 3. Hypertension. 4. Spinal stenosis. 5. History of vocal cord granuloma. 6. Seasonal allergies. 7. GERD. Continue with ranitidine. 8. Deep venous thrombosis (DVT) prophylaxis. He was put on heparin subcutaneous. DISCHARGE MEDICATIONS: The patient has been discharged home with the following: - acetaminophen 500 mg by mouth every 4 hours as needed for pain - ammonium lactate 12% topical as needed for rash - aspirin 162 mg by mouth daily - atorvastatin 20 mg by mouth nightly - betamethasone 1% topical as needed for rash - calcium polycarbophil 625 mg by mouth twice a day - vitamin D3 2000 units by mouth twice a day - coenzyme Q10 200 mg by mouth twice a day - vitamin B12 100 mcg by mouth daily - Flonase 15 mcg inhaled in each nostril nightly - fluorouracil 5% topical as needed for rash - glucosamine 2000 mg by mouth twice a day - guaifenesin 400 mg by mouth nightly - hydroxypropyl methylcellulose 0.3% both eyes nightly - latanoprost one drop in each eye nightly - midodrine 5 mg by mouth as needed for blood pressure - multivitamins one tablet by mouth twice a day - multivitamins one tablet by mouth in the evening - omeprazole 40 mg by mouth daily - polyethylene glycol 17 grams by mouth twice a day - ranitidine one tablet by mouth nightly - saw palmetto 450 mg by mouth four times a day - sildenafil 100 mg by mouth as directed - super B complex one tablet by mouth daily - tramadol 50 mg by mouth nightly - vision formula one tablet by mouth nightly DISCHARGE INSTRUCTIONS: Patient has been advised to followup with his primary care provider and neurology within the next 7 days. He has been advised to confirm/schedule appointment and remain compliant with treatment plan and medications. He has been advised to return to the emergency room if he experiences any problems. TIME SPENT ON DISCHARGE: 35 minutes.
--- NOTE | 2016-06-27 18:08 | EDDOCDS ---
Nurse's Notes [facility] Name: Dipesh Ramirez Age: 81 yrs Sex: Male : 1935 Arrival Date: 06/25/2016 Time: 12:44 Bed 10 Private MD: Hamlet Mars H. Diagnosis: Transient cerebral ischemic attack, unspecified Presentation: 06/25 12:47 Presenting complaint: Patient states: he has had numbness of his face and left arm kcs since last night. Has a history of a fib and is only on ASA now. Had a bad night because he can feel his pacer running constantly. Feels lightheaded. and has numbness and tingling in the left side of his face. Didn't come in last night because for the last 5 years he has had many similar bouts. Adult Sepsis Screening: The patient does not have new or worsening altered mentation. Patient's respiratory rate is less than 22. Systolic blood pressure is greater than 100. Patient has a qSOFA score of 0- Negative Sepsis Screen. Suicide/Homicide risk assessment- the patient denies having any suicidal and/or homicidal ideations and does not present with any other emotional, behavioral or mental health complaints. 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 Transition of care: patient was not received from another setting of care. 12:47 Acuity: CHRISTY Level 3 kcs 12:47 Method Of Arrival: Walkin/Carried/Asstd kcs Triage Assessment: 12:54 General: Appears comfortable, well developed, well nourished, well groomed, Behavior is kcs cooperative, flat. Pain: Denies pain. Neurological: Level of Consciousness is awake, alert. Respiratory: Airway is patent Respiratory effort is even, unlabored, Respiratory pattern is regular, symmetrical. Derm: Skin is intact, is healthy with good turgor, Skin is dry, Skin is normal. Historical: - Allergies: Amitriptyline; Augmentin; Biaxin; SULFA (SULFONAMIDES); - Home Meds: 1. aspirin 81 mg oral tab 2 tabs once daily 2. Flonase 50 mcg/actuation Nasal spsn 2 sprays once daily 3. latanoprost 0.005 % ophthalmic drop 1 drop once daily 4. Lipitor 20 mg Oral tab 1 tab once daily 5. midodrine 5 mg oral tab as needed 6. omeprazole 40 mg Oral cpDR 1 cap once daily 7. ranitidine HCl 300 mg Oral cap 1 cap once daily 8. tramadol 50 mg Oral tab 1 tab every 4-6 hours as needed 9. Viagra 100 mg Oral tab 1 tab as needed - PMHx: Atrial Fib; gastroparesis; GERD; hypotension; sick sinus syndrome; Spinal Stenosis; vocal cord granuloma; - PSHx: Arthroscopy. Shoulder- Left; Colon Resection; Hemorrhoidectomy; throat surgery; - Social history: Smoking status: Patient states former smoker of tobacco. No barriers to communication noted, The patient speaks fluent Afghan. - Family history: Not pertinent. - : The pt / caregiver states he / she is not on anticoagulants. Home medication list is obtained from the patient, [employer] import data. - Exposure Risk Screening:: None identified. Screenin:52 Screening information is obtained from the patient. Fall risk: No risks identified. mcp Assistance ADL's: requires no assistance with activities of daily living. Abuse/DV Screen: The patient / caregiver reports he/she is: not in a situation that causes fear, pain or injury. Nutritional screening: No deficits noted. home support is adequate. Assessment: 13:20 General: Appears in no apparent distress, Behavior is cooperative. Pain: Denies pain. mcp Neurological: Level of Consciousness is awake, alert, Oriented to person, place, time, Moves all extremities. Speech is normal, Facial symmetry appears normal, Reports numbness. Cardiovascular: Rhythm is atrial fibrillation. Respiratory: Airway is patent Respiratory effort is even, unlabored, Breath sounds are clear bilaterally. Derm: Skin is pink, warm & dry. 13:45 Cardiovascular: Rhythm is ventricular pacer with capture. mcp 14:00 General: Appears in no apparent distress, Behavior is cooperative. Cardiovascular: mcp Rhythm is atrial fibrillation. Respiratory: Airway is patent Respiratory effort is even, unlabored. 14:52 General: Appears in no apparent distress, comfortable, Behavior is cooperative. mcp Neurological: Level of Consciousness is awake, alert, Oriented to person, place, time, Moves all extremities. Speech is normal. Cardiovascular: Rhythm is atrial fibrillation. Respiratory: Airway is patent Respiratory effort is even, unlabored. Derm: Skin is pink, warm & dry. 15:35 General: Appears in no apparent distress, comfortable, Behavior is cooperative, Dr. alma rosa Ford at bedside to assess pt. . Respiratory: Airway is patent Respiratory effort is even, unlabored. Derm: Skin is pink, warm & dry. 15:47 General: pacemaker cards faxed to MRI. . ead 16:40 General: Appears in no apparent distress, comfortable, Behavior is appropriate for age, ead cooperative. Neurological: Level of Consciousness is awake, alert, Oriented to person, place, time. Respiratory: Airway is patent Respiratory effort is even, unlabored. Derm: Skin is pink, warm & dry. Vital Signs: 12:46 BP 147 / 74; Pulse 70; Resp 16; Temp 97.6; Pulse Ox 100% ; Weight 86.18 kg; Height 5 cmb ft. 6 in. (167.64 cm); Pain 0/10; 13:08 BP 164 / 75 (auto/); [facility] 13:10 Pulse 56 MON; Pulse Ox 99% ; [facility] 13:38 BP 144 / 70 (auto/); [facility] 13:38 Pulse 58 MON; Pulse Ox 97% ; [facility] 14:08 BP 174 / 78 (auto/); [facility] 14:09 Pulse 60 MON; Pulse Ox 98% ; [facility] 14:38 BP 158 / 75 (auto/); [facility] 14:38 Pulse 58 MON; Pulse Ox 98% ; [facility] 16:38 BP 142 / 72; Pulse 58 MON; Resp 18; Temp 97.1(O); Pulse Ox 96% on R/A; Pain 0/10; ead 17:02 BP 137 / 98 (auto/); ead 17:04 Pulse 70 MON; Resp 18; Pulse Ox 96% ; ead 12:46 Body Mass Index 30.67 (86.18 kg, 167.64 cm) cmb Vitals: 12:47 Log In Time: June 25, 2016 at 12:45. RN notified that patient meets Red Flag cmb criteria. ED Course: 12:44 Patient visited by Jeannine Martínez. cmb 12:44 Patient moved to Waiting cmb 12:46 Hamlet Mars is Private Physician. cmb 12:51 Triage Initiated kcs 13:00 Patient moved to Pre RCE kcs 13:03 Patient moved to 10 ar3 13:20 Inserted saline lock: 20 gauge in left antecubital area and blood collected. The [facility] patient tolerated the procedure well. Labs drawn. (by ED staff). Sent per order to lab. 13:23 Basic Metabolic Profile Sent. mcp 13:23 CBC with Diff Sent. mcp 13:23 Partial Thromboplastin Time Sent. mcp 13:23 Prothrombin Time Profile\E\INR Sent. mcp 13:37 EKG done. (by ED staff). Reviewed by Adelina Hensley MD. ct3 13:38 Patient visited by Azucena Segovia PCA. ct3 13:39 Adelina Hensley MD is Attending Physician. sd1 13:52 Patient visited by Adelina Hensley MD. sd1 14:29 Alcides Ford DO is Hospitalizing Provider. sd1 14:52 The patient / caregiver is instructed regarding the plan of care and ED course. Patient mcp has correct armband on for positive identification. Placed in gown. Bed in low position. Call light in reach. Side rails up X2. clinical studies specialist on. Pulse ox on. NIBP on. 14:53 Patient visited by Emely Larry, RN. mcp 14:55 Patient visited by Emely Larry RN. mcp 15:01 Meme Ramsey,RAY is Primary Nurse. ead 15:08 Chest, 1 View Returned. EDMS 15:58 [facility] Payment Agreement was scanned into [employer] and attached to record. gjb 16:51 No procedures done that require assistance. ead 06/26 12:40 T-Sheet-- Draft Copy was scanned into [employer] and attached to record. gb 12:40 ECG/EKG was scanned into [employer] and attached to record. gb Order Results: Lab Order: Basic Metabolic Profile; SPEC' 06/25/16 13:18 Test: GLUCOSE, FASTING; Value: 149; Range: 83-110; Abnormal: Above high normal; Units: MG/DL; Status: F Test: BLOOD UREA NITROGEN; Value: 20; Range: 7-18; Abnormal: Above high normal; Units: MG/DL; Status: F Test: CREATININE FOR GFR; Value: 1.32; Range: 0.70-1.30; Abnormal: Above high normal; Units: MG/DL; Status: F Test: GLOMERULAR FILTRATION RATE; Value: 55.3; Range: >35; Status: F Test: SODIUM LEVEL; Value: 143; Range: 136-145; Units: MEQ/L; Status: F Test: POTASSIUM SERUM; Value: 4.3; Range: 3.5-5.1; Units: MEQ/L; Status: F Test: CHLORIDE LEVEL; Value: 109; Range: 98-107; Abnormal: Above high normal; Units: MEQ/L; Status: F Test: CARBON DIOXIDE LEVEL; Value: 28; Range: 21-32; Units: MEQ/L; Status: F Test: ANION GAP; Value: 6; Range: 8-16; Abnormal: Below low normal; Units: MEQ/L; Status: F Test: CALCIUM LEVEL; Value: 9.0; Range: 8.8-10.2; Units: MG/DL; Status: F Test Note: ; Units are mL/min/1.73 m2 Chronic Kidney Disease Staging per NKF: Stage I & II GFR >=60 Normal to Mildly Decreased Stage III GFR 30-59 Moderately Decreased Stage IV GFR 15-29 Severely Decreased Stage V GFR <15 Very Little GFR Left ESRD GFR <15 on REPEATER CHIEF Lab Order: CBC with Diff; SPEC'M 06/25/16 13:18 Test: WHITE BLOOD COUNT; Value: 6.1; Range: 4.0-10.0; Units: K/mm3; Status: F Test: RED BLOOD COUNT; Value: 4.37; Range: 4.30-6.10; Units: M/mm3; Status: F Test: HEMOGLOBIN; Value: 14.1; Range: 14.0-18.0; Units: g/dl; Status: F Test: HEMATOCRIT; Value: 42.7; Range: 42.0-52.0; Units: %; Status: F Test: MEAN CORPUSCULAR VOLUME; Value: 97.8; Range: 80.0-96.0; Abnormal: Above high normal; Units: fl; Status: F Test: MEAN CORPUSCULAR HEMOGLOBIN; Value: 32.3; Range: 27.0-33.0; Units: pg; Status: F Test: MEAN CORPUSCULAR HGB CONC; Value: 33.0; Range: 32.0-36.5; Units: g/dl; Status: F Test: RED CELL DISTRIBUTION WIDTH; Value: 12.9; Range: 11.5-14.5; Units: %; Status: F Test: PLATELET COUNT, AUTOMATED; Value: 150; Range: 150-450; Units: k/mm3; Status: F Test: NEUTROPHILS %; Value: 68.6; Range: 36.0-66.0; Abnormal: Above high normal; Units: %; Status: F Test: LYMPH %; Value: 20.8; Range: 24.0-44.0; Abnormal: Below low normal; Units: %; Status: F Test: MONO %; Value: 4.7; Range: 0.0-5.0; Units: %; Status: F Test: EOS %; Value: 3.1; Range: 0.0-3.0; Abnormal: Above high normal; Units: %; Status: F Test: BASO %; Value: 0.8; Range: 0.0-1.0; Units: %; Status: F Test: LARGE UNSTAINED CELL %; Value: 2.0; Range: 0.0-4.0; Units: %; Status: F Test: NEUTROPHILS #; Value: 4.2; Range: 1.8-7.7; Units: K/mm3; Status: F Test: LYMPH #; Value: 1.4; Range: 1.5-4.5; Abnormal: Below low normal; Units: K/mm3; Status: F Test: MONO #; Value: 0.3; Range: 0.0-0.8; Units: K/mm3; Status: F Test: EOS #; Value: 0.2; Range: 0.0-0.50; Units: K/mm3; Status: F Test: BASO #; Value: 0.0; Range: 0.0-0.2; Units: K/mm3; Status: F Test: LARGE UNSTAINED CELL #; Value: 0.1; Range: 0.0-0.4; Units: K/mm3; Status: F Lab Order: Partial Thromboplastin Time; SPEC'M 06/25/16 13:18 Test: PARTIAL THROMBOPLASTIN TIME; Value: 28.7; Range: 26.6-37.1; Units: SECONDS; Status: F Lab Order: Prothrombin Time Profile\E\INR; SPEC'M 06/25/16 13:18 Test: PROTHROMBIN TIME; Value: 15.4; Range: 12.3-14.5; Abnormal: Above high normal; Units: SECONDS; Status: F Test: INR; Value: 1.21; Status: F Test Note: ; THERAPUTIC HUMAN INR VALUES INDICATIONS NORMAL RANGES PROPHYLAXIS/TREATMENT OF: VENOUS THROMBOSIS 2.0-3.0 PULMONARY EMBOLISM 2.0-3.0 PREVENTION OF SYSTEMIC EMBOLISM FROM: TISSUE HEART VALVES 2.0-3.0 ACUTE MYOCARDIAL INFARCTION 2.0-3.0 VALVULAR HEART DISEASE 2.0-3.0 ATRIAL FIBRILLATION 2.0-3.0 MECHANICAL VALVES(HIGH RISK) 2.5-3.5 RECURRENT MYOCARDIAL INFARCTION 2.5-3.5 Lab Order: Type & Screen; SPEC'M 06/25/16 15:19 Test: BLOOD TYPE; Value: O POS; Status: F Test: AB SCREEN (INDIRECT SHANNON)GEL; Value: NEGATIVE; Status: F Radiology Order: Chest, 1 View Test: Chest, 1 View REASON FOR EXAMINATION: numbness; Chest one-view; ; HISTORY: Numbness; ; Comparison: 04/12/2014; ; The lungs are clear. The heart is normal in size. The pulmonary vasculature is; normal in appearance. A cardiac pacemaker is present.; ; Impression: No acute disease.; ; ; Signed by; Tomer Leiva MD 06/25/2016 01:32 P; Outcome: 06/25 14:29 Decision to Hospitalize by Provider. sd1 16:40 CT Study completed. ead 16:51 Discharge Assessment: Patient awake and alert. obeys commands, Oriented to person, ead place and time. patient administered narcotics - no. The following High Risk Discharge criteria are identified: None. Admitted to PCU accompanied by nurse, via stretcher, on monitor, with chart. Condition: stable. Property :Personal belongings accompany Pt. 17:07 Patient left the ED. ead Signatures: Dispatcher [employer] EDMS Adelina Hensley MD MD sd1 Deneen Holden RN RN kcs Peters, Mary, RN RN mcp Barnhardt, Gloria, Connor Reg Yarely Diamond, PARACHUTE CUSHION INSTALLER PARACHUTE CUSHION INSTALLER ar3 Azucena Segovia, PARACHUTE CUSHION INSTALLER PARACHUTE CUSHION INSTALLER ct3 Jeannine Martínez Emily, RN RN ead Beck, Gabriela gjb Chart Complete MTDD
--- NOTE | 2016-06-27 18:08 | EDDOCDS ---
Physician Documentation [facility] Name: Dipesh Ramirez Age: 81 yrs Sex: Male : 1935 Arrival Date: 06/25/2016 Time: 12:44 Bed 10 Private MD: Hamlet Mars H. Disposition: 06/25/16 14:29 Hospitalization ordered by Alcides Ford for Inpatient Admission. Preliminary diagnosis is Transient cerebral ischemic attack, unspecified. - Bed requested for PCU. - Status is Inpatient Admission. ead - Condition is Stable. - Problem is new. - Symptoms have improved. Historical: - Allergies: Amitriptyline; Augmentin; Biaxin; SULFA (SULFONAMIDES); - Home Meds: 1. aspirin 81 mg oral tab 2 tabs once daily 2. Flonase 50 mcg/actuation Nasal spsn 2 sprays once daily 3. latanoprost 0.005 % ophthalmic drop 1 drop once daily 4. Lipitor 20 mg Oral tab 1 tab once daily 5. midodrine 5 mg oral tab as needed 6. omeprazole 40 mg Oral cpDR 1 cap once daily 7. ranitidine HCl 300 mg Oral cap 1 cap once daily 8. tramadol 50 mg Oral tab 1 tab every 4-6 hours as needed 9. Viagra 100 mg Oral tab 1 tab as needed - PMHx: Atrial Fib; gastroparesis; GERD; hypotension; sick sinus syndrome; Spinal Stenosis; vocal cord granuloma; - PSHx: Arthroscopy. Shoulder- Left; Colon Resection; Hemorrhoidectomy; throat surgery; - Social history: Smoking status: Patient states former smoker of tobacco. No barriers to communication noted, The patient speaks fluent Divehi. - Family history: Not pertinent. - : The pt / caregiver states he / she is not on anticoagulants. Home medication list is obtained from the patient, [employer] import data. - Exposure Risk Screening:: None identified. Vital Signs: 06/25 12:46 BP 147 / 74; Pulse 70; Resp 16; Temp 97.6; Pulse Ox 100% ; Weight 86.18 kg / 189.99 cmb lbs; Height 5 ft. 6 in. (167.64 cm); Pain 0/10; 13:08 BP 164 / 75 (auto/); mcp 13:10 Pulse 56 MON; Pulse Ox 99% ; mcp 13:38 BP 144 / 70 (auto/); mcp 13:38 Pulse 58 MON; Pulse Ox 97% ; mcp 14:08 BP 174 / 78 (auto/); mcp 14:09 Pulse 60 MON; Pulse Ox 98% ; mcp 14:38 BP 158 / 75 (auto/); mcp 14:38 Pulse 58 MON; Pulse Ox 98% ; mcp 16:38 BP 142 / 72; Pulse 58 MON; Resp 18; Temp 97.1(O); Pulse Ox 96% on R/A; Pain 0/10; ead 17:02 BP 137 / 98 (auto/); ead 17:04 Pulse 70 MON; Resp 18; Pulse Ox 96% ; ead 12:46 Body Mass Index 30.67 (86.18 kg, 167.64 cm) cmb MDM: 13:16 [employer] Executive Producer/Pulse Ox/q 15 min VS ordered. sd1 13:16 IV Saline Lock ordered. sd1 13:16 Rhythm Strip to chart ordered. sd1 13:17 Basic Metabolic Profile Ordered. EDMS 13:17 CBC with Diff Ordered. EDMS 13:17 Partial Thromboplastin Time Ordered. EDMS 13:17 Prothrombin Time Profile\E\INR Ordered. EDMS 13:18 Chest, 1 View Ordered. EDMS 13:18 Type & Screen Ordered. EDMS 13:18 CT Head Without Contrast Ordered. EDMS 13:18 ECG WITH READING ER PHYS+CARDIAG ordered. EDMS 14:10 Basic Metabolic Profile Reviewed. sd1 14:10 CBC with Diff Reviewed. sd1 14:10 Prothrombin Time Profile\E\INR Reviewed. sd1 14:10 Partial Thromboplastin Time Reviewed. sd1 14:13 BED REQUEST+ADM ordered. EDMS 14:33 Admission / Observation Status ordered. EDMS 14:53 REGULAR DIET ordered. EDMS 14:53 MRI Brain W/CON Ordered. EDMS 14:54 MRA BRAIN W/O CONTRAST Ordered. EDMS 14:55 Duplex,carotid (complete) Ordered. EDMS 14:55 ECHOCARD,DOPPLER/COLOR FLOW ordered. EDMS 15:30 Financial registration complete. gjb 15:55 PHYSICAL THERAPY EVAL & TREAT ordered. EDMS 15:58 [facility] [facility] [place] was scanned into [employer] and attached to record. gjb 06/26 12:40 T-Sheet-- Draft Copy was scanned into [employer] and attached to record. gb 12:40 ECG/EKG was scanned into [employer] and attached to record. gb Signatures: Dispatcher [employer] EDMS Adeilna Hensley MD MD sd1 Deneen Holden RN RN Sally Barillas, Reg Reg gb Meme RamseyRN RN Rita Christopher gjb Kristie Issa RN RN lmg The chart was reviewed and I authenticate all verbal orders and agree with the evaluation and treatment provided.Corrections: (The following items were deleted from the chart) 06/25 14:46 13:16 Accucheck ordered. sd1 mcp Attachments: 15:58 [facility] [place] Agreement gjb 06/26 12:40 T-Sheet-- Draft Copy gb 12:40 ECG/EKG gb Chart Complete MTDD
--- NOTE | 2016-06-27 18:08 | EDDOCDS ---
Physician Documentation [facility] Name: Dipesh Ramirez Age: 81 yrs Sex: Male : 1935 Arrival Date: 06/25/2016 Time: 12:44 Bed 10 Private MD: Hamlet Mars H. Disposition: 06/25/16 14:29 Hospitalization ordered by Alcides Ford for Inpatient Admission. Preliminary diagnosis is Transient cerebral ischemic attack, unspecified. - Bed requested for PCU. - Status is Inpatient Admission. ead - Condition is Stable. - Problem is new. - Symptoms have improved. Historical: - Allergies: Amitriptyline; Augmentin; Biaxin; SULFA (SULFONAMIDES); - Home Meds: 1. aspirin 81 mg oral tab 2 tabs once daily 2. Flonase 50 mcg/actuation Nasal spsn 2 sprays once daily 3. latanoprost 0.005 % ophthalmic drop 1 drop once daily 4. Lipitor 20 mg Oral tab 1 tab once daily 5. midodrine 5 mg oral tab as needed 6. omeprazole 40 mg Oral cpDR 1 cap once daily 7. ranitidine HCl 300 mg Oral cap 1 cap once daily 8. tramadol 50 mg Oral tab 1 tab every 4-6 hours as needed 9. Viagra 100 mg Oral tab 1 tab as needed - PMHx: Atrial Fib; gastroparesis; GERD; hypotension; sick sinus syndrome; Spinal Stenosis; vocal cord granuloma; - PSHx: Arthroscopy. Shoulder- Left; Colon Resection; Hemorrhoidectomy; throat surgery; - Social history: Smoking status: Patient states former smoker of tobacco. No barriers to communication noted, The patient speaks fluent Sinhala. - Family history: Not pertinent. - : The pt / caregiver states he / she is not on anticoagulants. Home medication list is obtained from the patient, [employer] import data. - Exposure Risk Screening:: None identified. Vital Signs: 06/25 12:46 BP 147 / 74; Pulse 70; Resp 16; Temp 97.6; Pulse Ox 100% ; Weight 86.18 kg / 189.99 cmb lbs; Height 5 ft. 6 in. (167.64 cm); Pain 0/10; 13:08 BP 164 / 75 (auto/); mcp 13:10 Pulse 56 MON; Pulse Ox 99% ; mcp 13:38 BP 144 / 70 (auto/); mcp 13:38 Pulse 58 MON; Pulse Ox 97% ; mcp 14:08 BP 174 / 78 (auto/); mcp 14:09 Pulse 60 MON; Pulse Ox 98% ; mcp 14:38 BP 158 / 75 (auto/); mcp 14:38 Pulse 58 MON; Pulse Ox 98% ; mcp 16:38 BP 142 / 72; Pulse 58 MON; Resp 18; Temp 97.1(O); Pulse Ox 96% on R/A; Pain 0/10; ead 17:02 BP 137 / 98 (auto/); ead 17:04 Pulse 70 MON; Resp 18; Pulse Ox 96% ; ead 12:46 Body Mass Index 30.67 (86.18 kg, 167.64 cm) cmb MDM: 13:16 [employer] Housekeeping/Pulse Ox/q 15 min VS ordered. sd1 13:16 IV Saline Lock ordered. sd1 13:16 Rhythm Strip to chart ordered. sd1 13:17 Basic Metabolic Profile Ordered. EDMS 13:17 CBC with Diff Ordered. EDMS 13:17 Partial Thromboplastin Time Ordered. EDMS 13:17 Prothrombin Time Profile\E\INR Ordered. EDMS 13:18 Chest, 1 View Ordered. EDMS 13:18 Type & Screen Ordered. EDMS 13:18 CT Head Without Contrast Ordered. EDMS 13:18 ECG WITH READING ER PHYS+CARDIAG ordered. EDMS 14:10 Basic Metabolic Profile Reviewed. sd1 14:10 CBC with Diff Reviewed. sd1 14:10 Prothrombin Time Profile\E\INR Reviewed. sd1 14:10 Partial Thromboplastin Time Reviewed. sd1 14:13 BED REQUEST+ADM ordered. EDMS 14:33 Admission / Observation Status ordered. EDMS 14:53 REGULAR DIET ordered. EDMS 14:53 MRI Brain W/CON Ordered. EDMS 14:54 MRA BRAIN W/O CONTRAST Ordered. EDMS 14:55 Duplex,carotid (complete) Ordered. EDMS 14:55 ECHOCARD,DOPPLER/COLOR FLOW ordered. EDMS 15:30 Financial registration complete. gjb 15:55 PHYSICAL THERAPY EVAL & TREAT ordered. EDMS 15:58 [facility] Payment Agreement was scanned into [facility] and attached to record. gjb 06/26 12:40 T-Sheet-- Draft Copy was scanned into [facility] and attached to record. gb 12:40 ECG/EKG was scanned into [employer] and attached to record. gb Signatures: Dispatcher [employer] EDMS Adelina Hensley MD MD sd1 Deneen Holden RN RN Sally Barillas, Reg Reg gb Meme RamseyRN RN Rita Christopher gjb Kristie Issa RN RN lmg The chart was reviewed and I authenticate all verbal orders and agree with the evaluation and treatment provided.Corrections: (The following items were deleted from the chart) 06/25 14:46 13:16 Accucheck ordered. sd1 mcp Attachments: 15:58 [facility] Payment Agreement gjb 06/26 12:40 T-Sheet-- Draft Copy gb 12:40 ECG/EKG gb Chart Complete MTDD
[2016-07-02 00:15] LABS: PROTEIN C ANTIGEN 79 % (60-150); PROTEIN S ANTIGEN FREE 87 % (57-157); PROTEIN S ANTIGEN TOTAL 99 % (60-150)
== END 2016-06-27 11:12 | disposition home or self-care (01) | DRG 69 ==
LOC: M ED 12:44 → M ED INP 14:30 → M PCU 17:10
PROVIDERS: ADMIT Hospitalist; ATTEND Internal Medicine
DX: G45.9 Transient cerebral ischemic attack, unspecified (principal); I49.5 Sick sinus syndrome; I48.0 Paroxysmal atrial fibrillation; K31.84 Gastroparesis; K21.9 Gastro-esophageal reflux disease without esophagitis; M48.06 Spinal stenosis, lumbar region; R20.2 Paresthesia of skin; J30.2 Other seasonal allergic rhinitis; Z95.0 Presence of cardiac pacemaker; Z87.891 Personal history of nicotine dependence; Z79.82 Long term (current) use of aspirin

== ENCOUNTER → 2016-08-27 | Outpatient (CLI) | payer MEDICARE ==
[~2016-08-27] MED LIST changes: +ACET500C PO; +AMMO12LO TOP; +ASPI1TAB PO; +ATOR1TAB21 PO; +BETA115CR TOP; +CO Q200C PO; +FIBE625T PO; +FLON1SPR; +FLUO1CRE2 TOP; +GENT0.3G OU; +GLUC500T53 PO; +GUAI200T PO; +LATA5OPD OU; +MIDO5TA PO; +MIRA33504 PO; +OCUVTAB PO; +OMEP40CA2 PO; +RANI300T PO; +SAW450CA7 PO; +SUPE1TAB PO; +TRAM50TA2 PO; +VIAG100T PO; +VISITAB6 PO; +VITA-122 PO; +VITA100T PO; +VITMTA PO
== END ==
LOC: M WUC 14:43
PROVIDERS: ATTEND Internal Medicine
DX: M79.673 Pain in unspecified foot (principal)

== ENCOUNTER 2017-05-23 13:42 | Emergency (ER) | payer MEDICARE ==
[~2017-05-23] VITALS: Ht 167.6 cm; Wt 83.6 kg
[~2017-05-23 13:42] MED LIST changes: -CO Q200C PO; +CO Q200C10 PO; -GUAI200T PO; +GUAI200T6 PO; +SAW450CA2 PO; -SAW450CA7 PO
[2017-05-23 14:53] LABS: BASO % 0.5 % (0.0-1.0); EOS # 0.2 10^3/uL (0.0-0.50); EOS % 3.9 % (0.0-3.0); IMMATURE GRANULOCYTE % 0.2 % (0-0); LYMPH # 1.3 10^3/uL (1.5-4.5); LYMPH % 20.7 % (24.0-44.0); MEAN CORPUSCULAR HEMOGLOBIN 32.3 pg (27.0-33.0); MEAN CORPUSCULAR HGB CONC 33.4 g/dl (32.0-36.5); MEAN CORPUSCULAR VOLUME 96.8 fl (80.0-96.0); MONO # 0.6 10^3/uL (0.0-0.8); NEUTROPHILS % 65.7 % (36.0-66.0); PLATELET COUNT, AUTOMATED 161 10^3/uL (150-450); RED CELL DISTRIBUTION WIDTH 12.4 % (11.5-14.5); WHITE BLOOD COUNT 6.1 10^3/uL (4.0-10.0)
[2017-05-23 15:03] LABS: INR 1.13
--- NOTE | 2017-05-23 15:04 | REP ---
Chest one-view HISTORY: Chest pain Comparison: 06/25/2016 The lungs are clear. The heart is normal in size. The pulmonary vasculature is normal in appearance. A cardiac pacemaker is present. Impression: No acute disease. Signed by Tomer Leiva MD 05/23/2017 02:57 P
[2017-05-23 15:19] LABS: ALBUMIN 3.4 GM/DL (3.2-5.2); ALBUMIN/GLOBULIN RATIO 1.03 (1.00-1.93); ALKALINE PHOSPHATASE 80 U/L (45-117); ALT/SGPT 36 U/L (12-78); ANION GAP 5 MEQ/L (8-16); AST/SGOT 24 U/L (7-37); BILIRUBIN,DIRECT 0.1 MG/DL (0.0-0.2); BILIRUBIN,TOTAL 0.4 MG/DL (0.2-1.0); BLOOD UREA NITROGEN 16 MG/DL (7-18); CALCIUM LEVEL 9.2 MG/DL (8.8-10.2); CARBON DIOXIDE LEVEL 29 MEQ/L (21-32); CHLORIDE LEVEL 107 MEQ/L (98-107); CREATININE FOR GFR 1.17 MG/DL (0.70-1.30); FREE T4 0.96 NG/DL (0.76-1.46); GLOMERULAR FILTRATION RATE > 60.0 (>35); GLUCOSE, FASTING 100 MG/DL (83-110); POTASSIUM SERUM 4.3 MEQ/L (3.5-5.1); SODIUM LEVEL 141 MEQ/L (136-145); TOTAL PROTEIN 6.7 GM/DL (6.4-8.2)
[2017-05-23 18:49] VITALS: BP 139/72
--- NOTE | 2017-05-24 17:51 | ECGEPIP ---
Stationary ECG Study [facility] - ED Test Date: 2017-05-23 Pat Name: PATIENCE CHAVEZ Department: Room: - Gender: M Beaver Trapper: sb : 1935 Requested By: Rox Eagle Order Number: [id number] Reading MD: Adelina Hensley Measurements Intervals [place] Rate: 55 P: 92 RI: 321 QRS: -21 QRSD: 82 T: -31 QT: 409 QTc: 394 Interpretive Statements ELECTRONIC ATRIAL PACEMAKER BORDERLINE LEFT AXIS DEVIATION NONSPECIFIC ST & T-WAVE ABNORMALITY ABNORMAL RHYTHM ECG Electronically Signed On 05-24-2017 17:51:33 EST by Adelina Hensley
== END 2017-05-23 18:51 | disposition home or self-care (01) ==
LOC: M ED 13:42
DX: R07.9 Chest pain, unspecified (principal); R00.2 Palpitations; R94.31 Abnormal electrocardiogram [ECG] [EKG]; E78.5 Hyperlipidemia, unspecified; M54.9 Dorsalgia, unspecified; Z95.0 Presence of cardiac pacemaker; Z79.82 Long term (current) use of aspirin; Z79.899 Other long term (current) drug therapy; Z88.0 Allergy status to penicillin; Z88.8 Allergy status to other drugs, medicaments and biological substances; Z88.2 Allergy status to sulfonamides

== ENCOUNTER → 2018-01-19 | Outpatient (CLI) | payer MEDICARE ==
[~2018-01-19] MED LIST changes: -ACET500C PO; -ACET65TA OR; -AMMO12LO TOP; -ASPI1TAB PO; -ATOR1TAB21 PO; -BETA115CR TOP; -CO Q200C10 PO; +E-Z-GAS II EFFERVESCENT PACKET (SODIUM BICARB./CITRIC ACID/SIMETHICONE) As Ordered; +E-Z-HD 98% w/w 340GM SUSP BTL As Ordered; +E-Z-PAQUE 96% w/w SUSP 176GM BTL As Ordered; -FIBE625T PO; -FLON1SPR; -FLUO1CRE2 TOP; -GENT0.3G OU; -GLUC500T53 PO; -GUAI200T6 PO; -LATA5OPD OU; -MIDO5TA PO; -MIRA33504 PO; -OCUVTAB PO; -OMEP40CA2 PO; -PRIL20CA OR; -RANI300T PO; -SAW450CA2 PO; -SUPE1TAB PO; -TRAM50TA2 PO; -VIAG100T PO; -VISITAB6 PO; -VITA-122 PO; -VITA100T PO; -VITA250T OR; -VITMTA PO; -ZANT150T OR
== END ==
LOC: M RAD 10:21
DX: K21.9 Gastro-esophageal reflux disease without esophagitis (principal)
CPT/HCPCS: 74220

== ENCOUNTER → 2018-03-05 | Outpatient (CLI) | payer MEDICARE ==
[2018-03-05 16:38] LABS: ALBUMIN 3.5 GM/DL (3.2-5.2); ALKALINE PHOSPHATASE 77 U/L (45-117); ALT/SGPT 38 U/L (12-78); ANION GAP 7 MEQ/L (8-16); AST/SGOT 25 U/L (7-37); BILIRUBIN,TOTAL 0.4 MG/DL (0.2-1.0); BLOOD UREA NITROGEN 16 MG/DL (7-18); CARBON DIOXIDE LEVEL 26 MEQ/L (21-32); CHLORIDE LEVEL 109 MEQ/L (98-107); CREATININE FOR GFR 1.08 MG/DL (0.70-1.30); GLOMERULAR FILTRATION RATE > 60.0 (>35); GLUCOSE, FASTING 92 MG/DL (70-100); NT-PRO BNP 254 PG/ML (<450); POTASSIUM SERUM 4.6 MEQ/L (3.5-5.1); SODIUM LEVEL 142 MEQ/L (136-145); TOTAL PROTEIN 6.2 GM/DL (6.4-8.2)
== END ==
LOC: M WUC 14:02
DX: R06.02 Shortness of breath (principal); R60.0 Localized edema
CPT/HCPCS: 80053

== ENCOUNTER → 2018-04-22 | Outpatient (CLI) | payer MEDICARE ==
[~2018-04-22] MED LIST changes: -E-Z-GAS II EFFERVESCENT PACKET (SODIUM BICARB./CITRIC ACID/SIMETHICONE) As Ordered; -E-Z-HD 98% w/w 340GM SUSP BTL As Ordered; -E-Z-PAQUE 96% w/w SUSP 176GM BTL As Ordered; +ISOVUE-370 76% 100ML VIAL (Q9967) As Ordered
== END ==
LOC: M RAD 12:15
DX: R22.1 Localized swelling, mass and lump, neck (principal)
CPT/HCPCS: Q9967

== ENCOUNTER → 2018-05-29 | Outpatient (CLI) | payer MEDICARE | LOC: M WUC 15:10 | DX: R05 Cough (principal); Z95.0 Presence of cardiac pacemaker | CPT/HCPCS: 71046 ==

== ENCOUNTER 2018-11-05 11:15 | Day surgery (SDC) | payer MEDICARE ==
[~2018-11-05] VITALS: Ht 162.6 cm; Wt 84.5 kg
[~2018-11-05 11:15] MED LIST changes: +ACET500C PO; +ACET65TA OR; +AMMO12LO TOP; +ASPI81TA26 PO; +ATOR1TAB21 PO; +BETA115CR TOP; +CO Q200C10 PO; +CYAN100T5 PO; +FIBE625T PO; +FLON1SPR; +FLUO1CRE2 TOP; +GENT0.3G OU; +GLUC500T53 PO; +GUAI200T6 PO; -ISOVUE-370 76% 100ML VIAL (Q9967) As Ordered; +LATA0.0013 OU; +LIPI20TA PO; +MELA10CA PO; +META58.68 PO; +MIDO5TA PO; +MIRA3350 PO; +MIRA33504 PO; +OCUVTAB PO; +OMEP40CA2 PO; +PRIL20CA OR; +RANI300T PO; +SAW450CA2 PO; +SAWCAP2 PO; +SUPE1TAB PO; +TRAM50TA2 PO; +VIAG100T PO; +VISITAB6 PO; +VITA-122 PO; +VITA250T OR; +VITMTA PO; +XALA0.007 OU; +ZANT150T OR
[2018-11-05] MEDS ORDERED: NS 1,000 ML IV ONE (13:15)
[2018-11-05] MEDS ORDERED: LIDOCAINE 2% INJ 100 MG/5 ML SDV (FOR ANES.) As Ordered ONE (13:54)
[2018-11-05] MEDS ORDERED: PROPOFOL 500 MG/50 ML VIAL As Ordered ONE (13:54)
[2018-11-05] MEDS ORDERED: fentaNYL 100 MCG/2 ML INJECTION (J3010) As Ordered ONE (13:54)
--- NOTE | 2018-11-05 14:06 | ROOR ---
Patient Name: Dipesh Ramirez Procedure Date: 11/05/2018 1:47 PM Date of : 1935 Age: 83 Room: [facility] Gender: Male Note Status: Finalized Procedure: Upper GI endoscopy Indications: Esophageal reflux, Throat pain, anterior neck pain Providers: Laureano VARGAS MD Referring MD: ALEKSANDR MONK MD Requesting Provider: Medicines: Monitored Anesthesia Care Complications: No immediate complications. Procedure: Pre-Anesthesia Assessment: - The heart rate, respiratory rate, oxygen saturations, blood pressure, adequacy of pulmonary ventilation, and response to care were monitored throughout the procedure. The Endoscope was introduced through the mouth, and advanced to the second part of duodenum. The upper GI endoscopy was accomplished without difficulty. The patient tolerated the procedure well. Findings: The examined esophagus was normal. Patchy inflammation characterized by erythema was found in the gastric body. Biopsies were taken with a cold forceps for histology. A single 5 mm semi-sessile polyp was found in the gastric body. The polyp was removed with a cold snare. Resection and retrieval were complete. The exam of the stomach was otherwise normal. The examined duodenum was normal. Impression: - Normal esophagus. - A few patches of erythema/mild gastritis in body of stomach. Biopsied. - A single gastric polyp. Resected and retrieved. - Normal examined duodenum. (- I see no significant abnormality to explain throat/neck pain on this exam.) Recommendation: - Continue present medications. - Telephone endoscopist for pathology results in 2 weeks. Laureano Vargas MD Laureano VARGAS MD 11/05/2018 2:06:09 PM Electronically signed by Laureano VARGAS MD Number of Addenda: 0 Note Initiated On: 11/05/2018 1:47 PM Estimated Blood Loss: Estimated blood loss: none.
[2018-11-05 14:30] VITALS: BP 136/82
== END 2018-11-05 14:42 | disposition home or self-care (01) ==
LOC: M OPP 11:15
PROVIDERS: ATTEND Internal Medicine Gastroenterology
DX: K21.9 Gastro-esophageal reflux disease without esophagitis (principal); K31.7 Polyp of stomach and duodenum; K29.70 Gastritis, unspecified, without bleeding; I48.91 Unspecified atrial fibrillation; G47.30 Sleep apnea, unspecified; Z95.0 Presence of cardiac pacemaker; Z88.2 Allergy status to sulfonamides; Z88.0 Allergy status to penicillin; Z88.8 Allergy status to other drugs, medicaments and biological substances; Z87.891 Personal history of nicotine dependence
CPT/HCPCS: 43239; 43251; 88305; J3010

== ENCOUNTER → 2019-06-17 | Outpatient (REF) | payer MEDICARE ==
[~2019-06-17] MED LIST changes: -OMEP40CA2 PO; +OMEP40CA97 PO; -SAWCAP2 PO; +[UNRECOGNIZED DRUG - OTHER] PO
[2019-06-17 12:35] LABS: HEMATOCRIT 41.8 % (42.0-52.0); HEMOGLOBIN 12.9 g/dl (13.5-17.5); MEAN CORPUSCULAR HEMOGLOBIN 31.6 pg (27.0-33.0); MEAN CORPUSCULAR HGB CONC 30.9 g/dl (32.0-36.5); MEAN CORPUSCULAR VOLUME 102.5 fl (80.0-96.0); PLATELET COUNT, AUTOMATED 167 10^3/uL (150-450); RED BLOOD COUNT 4.08 10^6/uL (4.30-6.10); WHITE BLOOD COUNT 7.8 10^3/uL (4.0-10.0)
[2019-06-17 12:38] LABS: BLOOD UREA NITROGEN 23 MG/DL (7-18); CARBON DIOXIDE LEVEL 29 MEQ/L (21-32); CHLORIDE LEVEL 108 MEQ/L (98-107); CREATININE FOR GFR 1.13 MG/DL (0.70-1.30); GLOMERULAR FILTRATION RATE > 60.0 (>35); GLUCOSE, FASTING 101 MG/DL (70-100); POTASSIUM SERUM 4.6 MEQ/L (3.5-5.1); SODIUM LEVEL 143 MEQ/L (136-145)
[2019-06-17 12:40] LABS: AMORPHOUS SEDIMENT SMALL (NEGATIVE); APPEARANCE, URINE HAZY (CLEAR); BACTERIA, URINE AUTO 1+ (NEGATIVE); BILIRUBIN, URINE AUTO NEGATIVE (NEGATIVE); BLOOD, URINE BLOOD 3+ (NEGATIVE); COLOR, URINE AMBER (YELLOW); GLUCOSE, URINE (UA) AUTO NEGATIVE (NEGATIVE); KETONE, URINE AUTO NEGATIVE (NEGATIVE); LEUKOCYTE ESTERASE, URINE AUTO NEGATIVE (NEGATIVE); NITRITE, URINE AUTO NEGATIVE (NEGATIVE); PROTEIN, URINE AUTO 2+ mg/dL (NEGATIVE); RBC, URINE AUTO 36 /HPF (0-3); SPECIFIC GRAVITY URINE AUTO 1.023 (1.002-1.035); SQUAMOUS EPITHELIAL CELL UR AU 0 /HPF (0-6); UROBILINOGEN, URINE AUTO 0.2 mg/dL (0.0-2.0); WBC, URINE AUTO 3 /HPF (0-3)
== END ==
LOC: M LABDRAW1 11:24
PROVIDERS: ATTEND Internal Medicine
DX: R31.0 Gross hematuria (principal)

== ENCOUNTER 2019-08-24 16:36 | Inpatient (IN) | payer MEDICARE ==
[~2019-08-24] VITALS: Ht 160 cm; Wt 84.1 kg
--- NOTE | 2019-08-24 17:17 | REPVR ---
PROCEDURE INFORMATION: Exam: CT Head Without Contrast Exam date and time: 08/24/2019 4:57 PM Age: 84 years old Clinical indication: Weakness, extremity; Additional info: CVA - nursing interventions must not delay CT TECHNIQUE: Imaging protocol: Computed tomography of the head without contrast. Radiation optimization: All CT scans at this facility use at least one of these dose optimization techniques: automated exposure control; mA and/or kV adjustment per patient size (includes targeted exams where dose is matched to clinical indication); or iterative reconstruction. Other technique: STROKE PROTOCOL was implemented. COMPARISON: CT Head without contrast 06/25/2016 1:55 PM FINDINGS: Brain: There is mild to moderate age related global parenchymal volume loss. White matter changes are demonstrated in the subcortical, centrum semiovale and periventricular white matter consistent with age related small vessel white matter angiopathic gliosis. Ventricles: The degree of ventricular dilatation is normal for age and/or degree of atrophy present. Bones/joints: Unremarkable. No acute fracture. Sinuses: Mild bilateral ethmoid sinusitis. Mastoid air cells: Visualized mastoid air cells are well aerated. Soft tissues: Unremarkable. IMPRESSION: 1. There is mild to moderate age related global parenchymal volume loss. White matter changes are demonstrated in the subcortical, centrum semiovale and periventricular white matter consistent with age related small vessel white matter angiopathic gliosis. 2. The degree of ventricular dilatation is normal for age and/or degree of atrophy present. 3. No acute findings. ASSESSMENT: ASPECTS ([place] Stroke Program Early CT Score) is 10. Electronically signed by: Eris Robles On 08/24/2019 17:17:53 PM
--- NOTE | 2019-08-24 17:27 | REPVR ---
PROCEDURE INFORMATION: Exam: CT Cervical Spine Without Contrast Exam date and time: 08/24/2019 4:57 PM Age: 84 years old Clinical indication: Weakness; Additional info: CVA - nursing interventions must not delay CT TECHNIQUE: Imaging protocol: Computed tomography images of the cervical spine without contrast. Radiation optimization: All CT scans at this facility use at least one of these dose optimization techniques: automated exposure control; mA and/or kV adjustment per patient size (includes targeted exams where dose is matched to clinical indication); or iterative reconstruction. COMPARISON: No relevant prior studies available. FINDINGS: Vertebrae: Levoscoliosis. Slight rotatory subluxation of the atlas on the axis with slight eccentric positioning of the odontoid process. Findings likely chronic. Discs/Spinal canal/Neural foramina: Disc space narrowing with prominent intervertebral osteophytes demonstrated throughout the cervical spine most pronounced at C5-C6 and C6-C7. There are degenerative changes demonstrated in the atlantoaxial joint with osteophytes and joint space narrowing. The transverse ligament is unremarkable. Cystic changes demonstrated in the posterior base of the odontoid process likely degenerative. Moderate bilateral foraminal stenosis at C2, severe bilateral foraminal stenosis at C3, severe foraminal stenosis on the right and mild to moderate foraminal stenosis on the left at C4, severe foraminal stenosis on the left and mild foraminal stenosis on right at C5, moderate to severe bilateral foraminal stenosis at C6 secondary to uncinate joint hypertrophic changes. There is multilevel facet joint arthropathy. Disc osteophyte complexes demonstrated throughout the cervical spine with a left paracentral disc protrusion at C3-C4 effacing the left hemicord, prominent disc osteophyte complex at C5-C6 effacing the left paracentral thecal sac with moderate cord impingement extending into the foramen with there is severe foraminal narrowing. Prominent disc osteophyte complex at C6-C7 effaces the ventral subarachnoid space with mild mid and left hemicord impingement extending into the left foramen resulting in severe foraminal stenosis. Soft tissues: See Discs/spinal Canal/neural Foramina Finding. Otherwise unremarkable. Lungs: Lung apices are normal. IMPRESSION: 1. Slight rotatory subluxation of the atlas on the axis with slight eccentric positioning of the odontoid process. Findings likely chronic. 2. Severe degenerative spondylosis. Multilevel foraminal stenoses and disc osteophyte complexes with cord impingement at C3-C4, C5-C6 and C6-C7 as described above. 3. Marked degenerative changes at C1 and C2 with cystic erosive changes in the posterior odontoid process. Electronically signed by: Eris Robles On 08/24/2019 17:26:43 PM
[2019-08-24 17:40] LABS: BASO % 0.3 % (0.0-1.0); EOS # 0.2 10^3/uL (0.0-0.5); EOS % 1.3 % (0.0-3.0); HEMATOCRIT 35.6 % (42.0-52.0); HEMOGLOBIN 11.4 g/dl (13.5-17.5); LYMPH # 1.1 10^3/uL (1.5-5.0); LYMPH % 9.4 % (24.0-44.0); MEAN CORPUSCULAR HEMOGLOBIN 31.7 pg (27.0-33.0); MEAN CORPUSCULAR VOLUME 98.9 fl (80.0-96.0); MONO % 8.7 % (0.0-5.0); NEUTROPHILS # 9.1 10^3/uL (1.5-8.5); NEUTROPHILS % 79.9 % (36.0-66.0); PLATELET COUNT, AUTOMATED 147 10^3/uL (150-450); WHITE BLOOD COUNT 11.4 10^3/uL (4.0-10.0)
[2019-08-24 17:50] LABS: INR 1.42
[2019-08-24 17:51] LABS: PARTIAL THROMBOPLASTIN TIME 36.8 SECONDS (25.0-38.4)
[2019-08-24 18:23] LABS: BLOOD UREA NITROGEN 32 MG/DL (7-18); CALCIUM LEVEL 8.7 MG/DL (8.8-10.2); CARBON DIOXIDE LEVEL 28 MEQ/L (21-32); CHLORIDE LEVEL 104 MEQ/L (98-107); CK-MB VALUE MASS 7.2 NG/ML (<3.6); CPK CREATINE PHOSPHOKINASE 1859 U/L (39-308); CREATININE FOR GFR 1.23 MG/DL (0.70-1.30); GLOMERULAR FILTRATION RATE 59.5 (>35); GLUCOSE, FASTING 129 MG/DL (70-100); MB/CK RELATIVE INDEX 0.39 (< OR =4); POTASSIUM SERUM 4.2 MEQ/L (3.5-5.1); SODIUM LEVEL 136 MEQ/L (136-145); TROPONIN I < 0.02 NG/ML (< 0.10)
[2019-08-24] MEDS ORDERED: NS 1,000 ML IV SCH (19:00)
[2019-08-24] MEDS ORDERED: FIBE625T PO (19:03)
[2019-08-24] MEDS ORDERED: GUAI400T9 PO (19:03)
[2019-08-24] MEDS ORDERED: GABA-843 PO (19:03)
[2019-08-24] MEDS ORDERED: PEPC1TAB5 PO (19:03)
[2019-08-24] MEDS ORDERED: SM STAB3 PO (19:03)
[2019-08-24] MEDS ORDERED: VITAD1000T PO (19:03)
[2019-08-24] MEDS ORDERED: ALLE180T33 PO (19:03)
[2019-08-24] MEDS ORDERED: MELA1TAB33 PO (19:03)
[2019-08-24] MEDS ORDERED: DSS100CA PO (19:03)
[2019-08-24] MEDS ORDERED: SAW1CAPS2 PO (19:03)
[2019-08-24] MEDS ORDERED: TRAM50TA2 PO (19:03)
[2019-08-24] MEDS ORDERED: MAGN250T7 PO (19:03)
[2019-08-24] MEDS ORDERED: SENN1TAB41 PO ×2 (19:03)
--- NOTE | 2019-08-24 19:46 | REP ---
CHEST, SINGLE VIEW: COMPARISON: 05/29/2018 There is no evidence of acute infiltrate or pulmonary edema. The heart is upper limits of normal in size. There is mild calcification of the thoracic aorta. Mediastinal silhouette is unremarkable and unchanged. There is a left dual lead pacemaker. IMPRESSION: No acute pulmonary disease. Electronically Signed by Mati Beltran MD 08/25/2019 03:50 P
[2019-08-24 19:48] LABS: ALT/SGPT 48 U/L (12-78); BILIRUBIN,DIRECT 0.3 MG/DL (0.0-0.2); BILIRUBIN,TOTAL 0.8 MG/DL (0.2-1.0); ETHYL ALCOHOL (ETHANOL) < 0.003 % (0.000-0.010); TOTAL PROTEIN 5.9 GM/DL (6.4-8.2)
[2019-08-24 20:12] VITALS: BP 133/61
[2019-08-24] MEDS: SENOKOT S TAB PO SCH (21:00)
[2019-08-24] MEDS: LATANOPROST 0.005% OPHTH SOLN 2.5 ML OU SCH (21:00)
[2019-08-24] MEDS: DOCUSATE SODIUM 100 MG CAP PO SCH (21:00)
[2019-08-24] MEDS ORDERED: cefTRIAXone SOD 1 GM in D5W MINI-BAG PLUS 50 ML IV ONE (21:15)
[2019-08-24] MEDS ORDERED: MIDODRINE 5 MG TAB PO PRN (22:15)
--- NOTE | 2019-08-24 22:46 | IPNPDOC ---
Text Note Date of Service The patient was seen on 08/24/19. NOTE Time of service 11:40 PM Mr. Ramirez is a 74-year-old with a past medical history of bladder cancer; his last session of BCG. She was yesterday. Today, his brought him in for evaluation of altered mental status with visual hallucinations and a fall. Per discussion with the ER provider, the patient's UA findings were consistent with UTI and the CPK was slightly elevated. He'll be admitted for management of altered mental status secondary to UTI and rhabdomyolysis secondary to fall. Rest per Dr. Morales's note VS,Deandre, I+O VS, Michellee, I+O Laboratory Tests 08/24/19 17:12 Vital Signs Date Time Temp Pulse Resp B/P (MAP) Pulse Ox O2 Delivery O2 Flow Rate FiO2 08/24/19 21:30 97.8 63 20 150/64 (92) 97 08/24/19 20:12 Room Air DAVID MURCIA MD Aug 24, 2019 22:46
--- NOTE | 2019-08-24 23:34 | HPEPDOC ---
[facility] Medical History & Physical Date of Admission Aug 24, 2019 Date of Service: Aug 24, 2019 Attending Physician: DAVID MURCIA MD History and Physical CHIEF COMPLAINT: Weakness HISTORY OF PRESENT ILLNESS: Patient is an 84-year-old male who presents to the emergency department with weakness and possible confusion. Patient states that his brought him to the emergency department. Patient states that he is being treated for bladder cancer and every time he gets chemotherapeutic regimen, he had issues with weakness and hallucinations. Patient had this issue again today however, patient is unsure of the exact reason why his brought him to the hospital. Patient states that he is also confused about why we are telling him he has a urinary tract infection as he has intraluminal chemotherapy and his bladder had a urinalysis yesterday that did not show any infection or else he wouldn't have the treatment. Patient denies any dysuria or increased frequency of urination. Patient says that he is weak and has to have his dresses him because of spinal stenosis. Patient does not have any other complaints at this time. REVIEW OF SYSTEMS: General: Patient denies fevers, chills, night sweats, unintentional weight loss HEENT: Patient denies headaches, changes in vision, sore throat. Cardiovascular: Patient denies chest pain, chest pressure, or palpitations Respiratory: Patient denies shortness of breath, cough GI: Patient denies abdominal pain, nausea, vomiting, diarrhea : Patient denies pain or difficulty with urination Neurological: Patient denies numbness or tingling in extremities Extremities: Patient denies swelling or pain in extremities Skin: Patient denies any rashes or lesions. Hematologic: Patient denies any easy bruising. Lymphatic: Patient denies any lumps in his neck, axilla, or groin. HOME MEDICATIONS: Please see below. PAST MEDICAL HISTORY: 1. Atrial fibrillation. 2. Sick sinus syndrome. 3. Gastroparesis 4. GERD 5. Spinal stenosis 6. Vocal cord granuloma 7. Seasonal allergies 8. Bladder cancer. PAST SURGICAL HISTORY: 1. Left shoulder arthroscopy. 2. Colon resection with hemorrhoidectomy. 3. Throat surgery 4. Cystoscopy with tumor resection. SOCIAL HISTORY: Patient lives at home with his . Patient says he smokes cigarettes. However he quit 45 years ago. Patient denies any recent alcohol use. Patient says he uses CBD oil to help with sleep every night. FAMILY HISTORY: Patient says he has a history of heart disease in his father ALLERGIES: Please see below. MEDICATIONS: Please see below. PHYSICAL EXAMINATION: VITAL SIGNS: Temperature 98, pulse 74, respiratory rate 17, blood pressure 141/81, pulse oximetry 98% on room air. General: Patient is an alert and oriented male patient who was laying on the emergency room stretcher when I walked in the room. Patient does not appear to be in any acute distress. HEENT: Normocephalic, atraumatic, moist mucous membranes, posterior pharynx was nonerythematous, tympanic membranes are pearly-pike without erythema. Neck: No lymphadenopathy, thyromegaly, or carotid bruits. Cardiac: Regular rate and rhythm, no murmurs, normal S1, normal S2 Pulm: Clear to auscultation bilaterally. No wheezes, rhonchi, rales Abd: Nondistended, nontender to palpation, normal bowel sounds Ext: No edema bilateral lower extremities Neuro: No gross neurological deficits. Patient's speech was somewhat tangential when I was examining him. Patient would break his sentence asked questions. Patient's speech was clear. Cranial nerves were intact bilaterally Skin: Skin of the arms, lower legs, abdomen, back, head and neck were examined did not show any evidence of rash or lesions. LABORATORY DATA: IMAGING: A CT of the head performed without contrast was reported to show mild to moderate age-related clonal parenchymal volume loss. White matter changes are demonstrated in the subcortical, centrum semiovale and periventricular white matter consistent with age-related small vessel white matter angiopathic gliosis, the degree of ventricular dilatation is normal for age and/or degree of atrophy present. No acute findings A chest x-ray performed was reported to show no acute pulmonary disease. A CT of the cervical spine was reported to show slight rotary subluxation of the atlas on axis with slight eccentric positioning of the odontoid process. Findings likely chronic. Severe degenerative spondylolysis. Multilevel foraminal stenosis and disc osteophyte complexes with cord impingement at C3-C4, C5-C6, and C6-C7. Marked degenerative changes at C1 and C2 with cystic erosive changes in the posterior odontoid process. MICROBIOLOGY: Please see below. ASSESSMENT: Patient is an 84-year-old male who presents to the hospital with weakness and possible altered mental status however, family members were not in the room when I went to examine the patient. Patient was alert and oriented during exam but states that he is having issues earlier on that he was unclear about which is why his brought him in. PLAN: 1. Altered mental status. At the current time, the patient does not appear to have altered mental status however, he does have tangential speech. Patient also appears to have urinary tract infection which may be the reason for his altered mental status. Patient was started on ceftriaxone until cultures come back. Patient does not appear to be septic at this time so we'll continue to monitor the patient. Patient also says that he is had episodes of confusion after receiving his chemotherapy for bladder cancer. 2. Urinary tract infection. Patient's urinary analysis appears to show infection however, this may be secondary to the catheterization and chemotherapy he received yesterday. We will empirically treat with Rocephin and await cultures. 3. Rhabdomyolysis likely 2/2 fall. We will trend CPK and give IVF. 4. Weakness. Continue working with physical therapy. Patient's weakness may be secondary to his bladder cancer as well as spinal stenosis. 5.Spinal stenosis. We'll continue with patient's home pain medication and patient will work with physical therapy. 6. Bladder cancer. Patient received his third treatment of chemotherapy yesterday. This may explain the patient's confusion/urinary tract infection however, we will continue to monitor. 7. Atrial fibrillation/sick sinus syndrome. Patient is post pacemaker placement. Patient is not tachycardic and does not need telemetry. 8. Bicytopenia. Monitor for bleeding. 9. Obesity BMI 32.8. This complicates care. We will follow up an A1C. He can follow up with his PCP for the STOP BANG questionnaire, heel nail rasper consult 10. DVT prophylaxis: Lovenox 11. CODE STATUS: Full code Disposition: Patient will be admitted to the medical surgical floor for further monitoring and treatment. Patient will most likely need 2 midnights. Laboratory Data Microbiology Microbiology 08/24/19 Urine Culture, Received Pending Home Medications Scheduled Aspirin (Aspirin EC) 81 Mg Tab, 162 MG PO DAILY Atorvastatin Calcium (Lipitor) 20 Mg Tablet, 20 MG PO QHS B-Complex with Vitamin C (Super B Complex-Vitamin C) 1 Each Tablet, 1 TAB PO DAILY 1300 Calcium Polycarbophil (Fibercon) 625 Mg Tablet, 625 MG PO BID Cholecalciferol (Vitamin D3) (Vitamin D3) 1,000 Unit Tablet, 1,000 UNITS PO BID Docusate Sodium (Stool Softener) 100 Mg Capsule, 200 MG PO QHS Famotidine (Pepcid) 20 Mg Tablet, 20 MG PO QHS Fexofenadine HCl (Karen Allergy) 180 Mg Tablet, 180 MG PO QHS Gabapentin (Gabapentin) 300 Mg Capsule, 300 MG PO TID Glucosamine HCl (Glucosamine HCl) 500 Mg Tab, 1,000 MG PO BID 1300,1700 Guaifenesin (Guaifenesin) 400 Mg Tablet, 400 MG PO QHS Latanoprost (Xalatan) 0.005% 2.5ML Drops, 1 DROP OU QHS Magnesium Oxide (Magnesium) 250 Mg Tablet, 250 MG PO QPM Melatonin (Melatonin) 1 Mg Tablet, 1 MG PO QHS Multivitamins (Thera M Plus Tablet) 1 Tab Tab, 1 TAB PO QPM Omeprazole (Omeprazole) 40 Mg Cap, 40 MG PO DAILY Polyethylene Glycol 3350 (Miralax) 119 Gm Powder, 17 GM PO QPM Saw [place] Fruit/Zinc Picoli (Saw [place] 450 mg Capsule) 1 Each Capsule, 450 MG PO QID Sennosides/Docusate Sodium (Senna-S Tablet) 1 Each Tablet, 2 TAB PO QAM Sennosides/Docusate Sodium (Senna-S Tablet) 1 Each Tablet, 1 TAB PO QHS Tramadol HCl (Tramadol HCl) 50 Mg Tab, 100 MG PO QHS Tramadol HCl (Tramadol HCl) 50 Mg Tablet, 50 MG PO TID TAKES 0900, 1300, 1800 Ubidecarenone (Co Q-10) 200 Mg Cap, 200 MG PO DAILY 1600 Vits A,C,E/Lutein/Minerals (Ocuvite with Lutein Tablet) 1 Tab Tab, 1 TAB PO BID 1300,1700 Vits A,C,E/Lutein/Minerals (Eq Vision Formula Tablet) 1 Tab Tab, 1 TAB PO QHS Scheduled PRN Midodrine HCl (Midodrine HCl) 5 Mg Tab, 10 MG PO BID PRN for BLOOD PRESSURE SYSTOLIC <80 SITTING Allergies Coded Allergies: Sulfa (Sulfonamide Antibiotics) (Verified Allergy, Intermediate, 10/22/18) amitriptyline (Verified Allergy, Intermediate, psychotic behavior, 10/22/18) amoxicillin (Verified Allergy, Intermediate, bloody stool, 10/22/18) clarithromycin (Verified Allergy, Intermediate, bad tast in mouth, 10/22/18) clavulanic acid (Verified Allergy, Intermediate, bloody stool, 10/22/18) nortriptyline (Verified Allergy, Intermediate, BREATHING PROBLEMS, 10/22/18) A-FIB/CHADSVASC A-FIB History Current/History of A-Fib/PAF?: Yes Current PO Anticoag Therapy: No Treatment Reason Anticoagulant not given: Other Other reason anticoagulant not: patient is status post pacemaker GME ATTESTATION GME ATTESTATION My faculty preceptor for this patient encounter was physically present during the encounter and was fully available. All aspects of the patient interview, examination, medical decision making process, and medical care plan development were reviewed and approved by the faculty preceptor. The faculty preceptor is aware and concurs with the plan as stated in the body of this note and will attest to such by his/her cosignature. ATTENDING NOTE Please see my addendum dated August 23. I reviewed and edited the H&P and agree with the findings as documented by GILBERTO Adams DO Aug 24, 2019 23:34 DAVID MURCIA MD Aug 25, 2019 02:42
[2019-08-25 00:30] VITALS: BP 141/81
[2019-08-25] MEDS: traMADol 50 MG TAB PO SCH ×2 (01:22→22:37)
[2019-08-25] MEDS: ATORVASTATIN 20 MG TAB PO SCH ×2 (01:31→21:13)
[2019-08-25] MEDS: GABAPENTIN 300 MG CAP PO SCH ×4 (01:31→21:13)
[2019-08-25] MEDS: FAMOTIDINE 20 MG TAB PO SCH ×2 (01:32→21:13)
[2019-08-25 06:00] VITALS: BP 121/56
[2019-08-25 06:22] LABS: HEMOGLOBIN 10.8 g/dl (13.5-17.5); MEAN CORPUSCULAR HEMOGLOBIN 30.9 pg (27.0-33.0); MEAN CORPUSCULAR HGB CONC 31.8 g/dl (32.0-36.5); MEAN CORPUSCULAR VOLUME 97.4 fl (80.0-96.0); PLATELET COUNT, AUTOMATED 147 10^3/uL (150-450); RED BLOOD COUNT 3.49 10^6/uL (4.30-6.10); WHITE BLOOD COUNT 9.1 10^3/uL (4.0-10.0)
[2019-08-25 06:48] LABS: BLOOD UREA NITROGEN 24 MG/DL (7-18); CARBON DIOXIDE LEVEL 28 MEQ/L (21-32); CHLORIDE LEVEL 107 MEQ/L (98-107); CREATININE FOR GFR 0.96 MG/DL (0.70-1.30); GLOMERULAR FILTRATION RATE > 60.0 (>35); GLUCOSE, FASTING 107 MG/DL (70-100); MAGNESIUM LEVEL 2.3 MG/DL (1.8-2.4); SODIUM LEVEL 140 MEQ/L (136-145)
[2019-08-25] MEDS: ENOXAPARIN 40 MG/0.4 ML SYRINGE (J1650) SC SCH (08:59)
[2019-08-25 09:00] VITALS: BP 133/61
[2019-08-25] MEDS: VITAMIN D 1,000 INTERNATIONAL UNITS TABLET PO SCH ×2 (09:00→21:13)
[2019-08-25] MEDS: ASPIRIN 81 MG ENTERIC TAB PO SCH (09:00)
[2019-08-25] MEDS: FIBER-CON 625 MG TAB PO SCH ×2 (09:00→21:12)
[2019-08-25] MEDS: OMEPRAZOLE 20 MG CAP PO SCH (09:00)
[2019-08-25] MEDS: SENOKOT S TAB PO SCH ×2 (09:00→21:14)
[2019-08-25] MEDS: NS 1,000 ML IV SCH ×2 (10:01→17:16)
[2019-08-25] MEDS ORDERED: VITAMIN B COMPLEX/VIT C CAP PO SCH (13:00)
[2019-08-25] MEDS: OCUVITE 1 TAB PO SCH ×3 (14:17→21:13)
[2019-08-25 14:34] VITALS: BP 120/56
--- NOTE | 2019-08-25 15:46 | IPNPDOC ---
Text Note Date of Service The patient was seen on 08/25/19. NOTE Subjective: Patient is seen at bedside. There are no reported events overnight. He denies having hallucinations, and is oriented to where he is. He denies nausea, vomiting, fevers, or chest pain. He is not having any dysuria or shortness of breath. He is adamant that he did not fall. He says he has spinal stenosis, for which he has been evaluated by Dr. Peralta and is treated for by Dr. Banks. Periodically he will have weakness in his legs and will control his "falls." He denies any trauma. His clarified why she brought him in last night. She says that he wasn't acting like himself, and that he was having mild hallucinations and seeing things that just weren't there. He had his instillation of BCG for bladder cancer in [place] at Dr. Manzo's office on August 22. Objective: Vitals: See below General: Pleasant, elderly male in no acute distress. He answers questions appropriately and is alert and oriented x 3. HEENT: Mucous membranes are moist, eyes are clear. Neck: Supple, no masses. No JVD Lungs: Clear to auscultation bilaterally; no wheezes, rhonchi, or rales Heart: Regular rate and rhythm; no murmurs, gallops, or rubs Abdomen: Obese. Normoactive bowel sounds. Nondistended, nontender to palpation. Extremities: No bilateral lower extremity edema Neuro: Cranial nerves II through XII grossly intact. 5/5 muscle strength bilaterally. Sensation intact throughout. Psych: Speech is clear. No confabulations. Answers questions appropriately. Mood and affect are appropriate. Skin: No rashes, lesions, or bruises Assessment: 84-year-old male who presented to the hospital with generalized weakness and bacteriuria after receiving BCG instillation for bladder cancer. ABX day #2 Plan: 1. Generalized weakness. Patient continues to be alert and oriented on exam. Laboratory data is somewhat unrevealing for etiology. I called and spoke to Dr. Manzo (the patient's urologist). A rare side effect of BCG instillation can be confusion as well as extreme fatigue/flu-like symptoms. Leukocytosis and WBCs in the urine can be cause by BCG instillation, and if his urine culture is negative, he can be sent home without antibiotics. Patient also endorsed that he has had episodes of confusion after receiving his chemotherapy for bladder cancer before. Currently he is on ceftriaxone until the results of his urine culture are finalized. 2. Asymptomatic bacteriuria. Urinalysis was cloudy and positive for leukocyte esterase, urine WBCs, and 3+ urine bacteria. Per the patient's , the patient's specimen was not from a straight cath, nor was the tip of his penis cleansed before the urine was caught. He continues on Rocephin. If his urine culture grows anything antibiotics will be tailored accordingly, otherwise it will be discontinued if her culture is negative. 3. Rhabdomyolysis likely 07/25 fall. Has received IV fluids. CPK trending down. 4. Weakness. Continue working with physical therapy. Patient's weakness may be secondary to his bladder cancer as well as spinal stenosis. 5. Spinal stenosis. Continue with patient's home pain medication. He refuses physical therapy at this time. 6. Bladder cancer. Patient received his third treatment of chemotherapy 07/2019. I called and spoke to Dr. Manzo (patient's urologist: [phone]). A rare side effect of BCG instillation can be confusion as well as extreme fatigue/flu-like symptoms. Leukocytosis and WBCs in the urine can be cause by BCG instillation, and if his urine culture is negative, he can be sent home without antibiotics. 7. Atrial fibrillation/sick sinus syndrome. Patient is post pacemaker placement. Patient is not tachycardic and does not need telemetry. 8. Obesity BMI 32.8. This complicates care. He can follow up with his PCP for the STOP BANG questionnaire, endoscopy registered nurse consult 9. DVT prophylaxis: Lovenox CODE STATUS: Full code Disposition: DC home in the next 24-48 hours pending UC results VS,Fishbone, I+O VS, Fishbone, I+O Laboratory Tests 08/24/19 17:12 08/25/19 05:55 Vital Signs Date Time Temp Pulse Resp B/P (MAP) Pulse Ox O2 Delivery O2 Flow Rate FiO2 08/25/19 09:00 99.0 66 18 133/61 99 Room Air I&O- Last 24 Hours up to 6 AM 08/25/19 06:00 Intake Total 120 ml Output Total 275 ml Balance -155 ml GME ATTESTATION GME ATTESTATION My faculty preceptor for this patient encounter was physically present during the encounter and was fully available. All aspects of the patient interview, examination, medical decision making process, and medical care plan development were reviewed and approved by the faculty preceptor. The faculty preceptor is aw are and concurs with the plan as stated in the body of this note and will attest to such by his/her cosignature. ATTENDING NOTE I, Chriss Thornton, have independently examined this patient and performed my own physical exam, as well as reviewed the documentation and edited where necessary. I have discussed in detail with the resident / student the findings and plan of treatment as documented by the resident / student and edited their note. I agree with their findings and treatment plan and have edited their documentation. I will continue to follow the patient during this hospital stay. UMA CAZARES D.O. Aug 25, 2019 12:46 CHRISS THORNTON MD Aug 25, 2019 17:08
[2019-08-25] MEDS: traMADol 50 MG TAB PO PRN (17:20)
[2019-08-25] MEDS ORDERED: MIRALAX *UNIT DOSE* 17GM PACKET PO SCH (18:00)
[2019-08-25] MEDS ORDERED: MULTIVITAMINS/MINERALS THERAP 1 TAB PO SCH (18:00)
[2019-08-25] MEDS ORDERED: guaiFENesin 200 MG TAB PO SCH (21:00)
[2019-08-25] MEDS ORDERED: OCUVITE 1 TAB PO SCH (21:00)
[2019-08-25] MEDS ORDERED: FEXOFENADINE 60 MG TAB PO SCH (21:00)
[2019-08-25] MEDS ORDERED: cefTRIAXone SOD 1 GM in D5W MINI-BAG PLUS 50 ML IV SCH (21:00)
[2019-08-25] MEDS: LATANOPROST 0.005% OPHTH SOLN 2.5 ML OU SCH (21:14)
[2019-08-25] MEDS: DOCUSATE SODIUM 100 MG CAP PO SCH (21:14)
[2019-08-25 22:00] VITALS: BP 137/70
[2019-08-26] MEDS: traMADol 50 MG TAB PO PRN (05:03)
[2019-08-26 06:00] VITALS: BP 143/69
--- NOTE | 2019-08-26 06:32 | ECGEPIP ---
[facility] [place] - ED Test Date: 2019-08-24 Pat Name: PATIENCE CHAVEZ Department: Room: - Gender: Male Division Chair: STEVE : [id number] Requested By: Rox Eagle Order Number: [id number] Reading MD: Charlie Kramer Measurements Intervals [place] Rate: 69 P: 83 WI: 221 QRS: -63 QRSD: 134 T: 106 QT: 417 QTc: 449 Interpretive Statements ELECTRONIC VENTRICULAR PACEMAKER SIMILAR TO 05/23/17 Electronically Signed on 08-26-2019 6:31:37 EST by Charlie Kramer
[2019-08-26] MEDS ORDERED: MACR100C43 PO (07:13)
[2019-08-26 07:15] LABS: HEMATOCRIT 33.1 % (42.0-52.0); HEMOGLOBIN 10.7 g/dl (13.5-17.5); MEAN CORPUSCULAR HEMOGLOBIN 31.5 pg (27.0-33.0); MEAN CORPUSCULAR HGB CONC 32.3 g/dl (32.0-36.5); MEAN CORPUSCULAR VOLUME 97.4 fl (80.0-96.0); PLATELET COUNT, AUTOMATED 145 10^3/uL (150-450); WHITE BLOOD COUNT 8.6 10^3/uL (4.0-10.0)
[2019-08-26] MEDS: NS 1,000 ML IV SCH (07:19)
[2019-08-26 07:41] LABS: BLOOD UREA NITROGEN 16 MG/DL (7-18); CALCIUM LEVEL 8.1 MG/DL (8.8-10.2); CARBON DIOXIDE LEVEL 26 MEQ/L (21-32); CHLORIDE LEVEL 109 MEQ/L (98-107); CPK CREATINE PHOSPHOKINASE 616 U/L (39-308); CREATININE FOR GFR 0.79 MG/DL (0.70-1.30); GLOMERULAR FILTRATION RATE > 60.0 (>35); GLUCOSE, FASTING 95 MG/DL (70-100); MAGNESIUM LEVEL 2.2 MG/DL (1.8-2.4); POTASSIUM SERUM 3.6 MEQ/L (3.5-5.1); SODIUM LEVEL 139 MEQ/L (136-145)
[2019-08-26] MEDS: ENOXAPARIN 40 MG/0.4 ML SYRINGE (J1650) SC SCH (09:00)
[2019-08-26] MEDS: VITAMIN D 1,000 INTERNATIONAL UNITS TABLET PO SCH (09:29)
[2019-08-26] MEDS: FIBER-CON 625 MG TAB PO SCH (09:29)
[2019-08-26] MEDS: GABAPENTIN 300 MG CAP PO SCH (09:29)
[2019-08-26] MEDS: ASPIRIN 81 MG ENTERIC TAB PO SCH (09:29)
[2019-08-26] MEDS: SENOKOT S TAB PO SCH (09:30)
[2019-08-26] MEDS: OMEPRAZOLE 20 MG CAP PO SCH (09:30)
--- NOTE | 2019-08-26 10:34 | DS.PDOC ---
Discharge Summary General Date of Admission Aug 24, 2019 at 21:24 Date of Discharge 08/26/2019 Attending Physician: HERMES NIETO MD Discharge Summary PROCEDURES PERFORMED DURING STAY: None. ADMITTING DIAGNOSES: 1. Altered mental status. 2. Urinary Tract Infection 3. Rhabdomyolysis 4. Generalized weakness 5. Spinal stenosis DISCHARGE DIAGNOSES: 1. Generalized weakness and confusion 2/2 BCG instillation, resolved 2. Uncomplicated cystitis 3. Rhabdomyolysis, resolved 4. Spinal stenosis COMPLICATIONS/CHIEF COMPLAINT: Confusion and weakness HISTORY OF PRESENT ILLNESS: Patient is an 84-year-old male who presented to the emergency department with weakness and possible confusion, per his . He had just had an instillation of BCG for bladder cancer the day prior and every time he gets chemotherapeutic regimen, he had issues with weakness and hallucinations. Patient says that he is generally weak in his lower extremities and has to have his dresses him because of spinal stenosis. Periodically his legs will give out and he will have a controlled fall to the floor. HOSPITAL COURSE: Patient stayed free of hallucinations and remained alert/oriented during his hospital stay. His weakness improved back to his baseline. His urine culture grew E. faecalis and his antibiotics were de- escalated appropriately. On the day of discharge he was meeting all discharge criteria. DISCHARGE MEDICATIONS: Please see below. ALLERGIES: Please see below. PHYSICAL EXAMINATION ON DISCHARGE: Vitals: See below General: Pleasant, elderly male in no acute distress. He answers questions appropriately and is alert and oriented x 3. HEENT: Mucous membranes are moist, eyes are clear. Neck: Supple, no masses. No JVD Lungs: Clear to auscultation bilaterally; no wheezes, rhonchi, or rales Heart: Regular rate and rhythm; no murmurs, gallops, or rubs Abdomen: Obese. Normoactive bowel sounds. Nondistended, nontender to palpation. Extremities: No bilateral lower extremity edema Neuro: Cranial nerves II through XII grossly intact. 5/5 muscle strength bilaterally. Sensation intact throughout. Psych: Speech is clear. No confabulations. Answers questions appropriately. Mood and affect are appropriate. Skin: No rashes, lesions, or bruises LABORATORY DATA: Please see below. IMAGING: CT head done 08/24/2019: Mild to moderate age related global parenchymal volume loss. 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 The degree of ventricular dilatation is normal for age and/or degree of atrophy present. No acute findings. Chest x-ray done 08/24/2019: No acute pulmonary disease Cervical spine CT done 08/24/2019: Slight rotary subluxation of the Anny on the axis was slightly eccentric positioning of the odontoid process, findings likely chronic. Severe degenerative spondylosis with multilevel foraminal stenosis and disc osteophyte complexes with cord impingement at C3-C4, C5-C6, and C6-C7. Marked degenerative changes at C1 and C2 with cystic erosive changes in the posterior odontoid process PROGNOSIS: Fair ACTIVITY: As tolerated. DIET: Regular DISCHARGE PLAN: Discharge to home DISPOSITION: Stable. DISCHARGE INSTRUCTIONS: 1. Follow up with PCP in 1 week. 2. Follow up with Dr. Manzo next week as scheduled ITEMS TO FOLLOWUP ON ON OUTPATIENT: 1. Repeat UA at Dr. Manzo's for resolution of UTI. DISCHARGE CONDITION: Stable. TIME SPENT ON DISCHARGE: Greater than 30 minutes. Vital Signs/I&Os Vital Signs Date Time Temp Pulse Resp B/P (MAP) Pulse Ox O2 Delivery O2 Flow Rate FiO2 08/26/19 06:00 98.0 79 18 143/69 (93) 98 Room Air I&O- Last 24 Hours up to 6 AM0 08/26/19 06:00 Intake Total 1590 ml Balance 1590 ml Laboratory Data Labs 24H Laboratory Tests 2 08/26/19 06:50: Nucleated Red Blood Cells % (auto) 0.0, Anion Gap 4L, Glomerular Filtration Rate > 60.0, Calcium Level 8.1L, Magnesium Level 2.2, Total Creatine Kinase 616H CBC/BMP Laboratory Tests 08/26/19 06:50 Microbiology Microbiology 08/25/19 Blood Culture - Preliminary, Resulted No growth after 24 hours . All specim... 08/25/19 Blood Culture - Preliminary, Resulted No growth after 24 hours . All specim... 08/24/19 Urine Culture - Final, Complete Enterococcus Faecalis Discharge Medications Scheduled Aspirin (Aspirin EC) 81 Mg Tab, 162 MG PO DAILY, (Reported) Atorvastatin Calcium (Lipitor) 20 Mg Tablet, 20 MG PO QHS, (Reported) B-Complex with Vitamin C (Super B Complex-Vitamin C) 1 Each Tablet, 1 TAB PO DAILY, (Reported) 1300 Calcium Polycarbophil (Fibercon) 625 Mg Tablet, 625 MG PO BID, (Reported) Cholecalciferol (Vitamin D3) (Vitamin D3) 1,000 Unit Tablet, 1,000 UNITS PO BID, (Reported) Docusate Sodium (Stool Softener) 100 Mg Capsule, 200 MG PO QHS, (Reported) Famotidine (Pepcid) 20 Mg Tablet, 20 MG PO QHS, (Reported) Fexofenadine HCl (Karen Allergy) 180 Mg Tablet, 180 MG PO QHS, (Reported) Gabapentin (Gabapentin) 300 Mg Capsule, 300 MG PO TID, (Reported) Glucosamine HCl (Glucosamine HCl) 500 Mg Tab, 1,000 MG PO BID, (Reported) 1300,1700 Guaifenesin (Guaifenesin) 400 Mg Tablet, 400 MG PO QHS, (Reported) Latanoprost (Xalatan) 0.005% 2.5ML Drops, 1 DROP OU QHS, (Reported) Magnesium Oxide (Magnesium) 250 Mg Tablet, 250 MG PO QPM, (Reported) Melatonin (Melatonin) 1 Mg Tablet, 1 MG PO QHS, (Reported) Multivitamins (Thera M Plus Tablet) 1 Tab Tab, 1 TAB PO QPM, (Reported) Nitrofurantoin Monohyd/M-Cryst (Macrobid 100 mg Capsule) 100 Mg Capsule, 100 MG PO BID Omeprazole (Omeprazole) 40 Mg Cap, 40 MG PO DAILY, (Reported) Polyethylene Glycol 3350 (Miralax) 119 Gm Powder, 17 GM PO QPM, (Reported) [place] Fruit/Zinc Picoli (Saw [place] 450 mg Capsule) 1 Each Capsule, 450 MG PO QID, (Reported) Sennosides/Docusate Sodium (Senna-S Tablet) 1 Each Tablet, 2 TAB PO QAM, (Reported) Sennosides/Docusate Sodium (Senna-S Tablet) 1 Each Tablet, 1 TAB PO QHS, (Reported) Tramadol HCl (Tramadol HCl) 50 Mg Tab, 100 MG PO QHS, (Reported) Tramadol HCl (Tramadol HCl) 50 Mg Tablet, 50 MG PO TID, (Reported) TAKES 0900, 1300, 1800 Ubidecarenone (Co Q-10) 200 Mg Cap, 200 MG PO DAILY, (Reported) 1600 Vits A,C,E/Lutein/Minerals (Ocuvite with Lutein Tablet) 1 Tab Tab, 1 TAB PO BID, (Reported) 1300,1700 Vits A,C,E/Lutein/Minerals (Eq Vision Formula Tablet) 1 Tab Tab, 1 TAB PO QHS, (Reported) Scheduled PRN Midodrine HCl (Midodrine HCl) 5 Mg Tab, 10 MG PO BID PRN for BLOOD PRESSURE, (Reported) SYSTOLIC <80 SITTING Allergies Coded Allergies: Sulfa (Sulfonamide Antibiotics) (Verified Allergy, Intermediate, 10/22/18) amitriptyline (Verified Allergy, Intermediate, psychotic behavior, 10/22/18) amoxicillin (Verified Allergy, Intermediate, bloody stool, 10/22/18) clarithromycin (Verified Allergy, Intermediate, bad tast in mouth, 10/22/18) clavulanic acid (Verified Allergy, Intermediate, bloody stool, 10/22/18) nortriptyline (Verified Allergy, Intermediate, BREATHING PROBLEMS, 10/22/18) UMA CAZARES D.O. Aug 26, 2019 10:34
== END 2019-08-26 11:35 | disposition home or self-care (01) | DRG 558 ==
LOC: M ED 16:36 → M ED INP 21:24 → ENRESERV 21:35 → M MS5PR 08-25 00:30
PROVIDERS: ADMIT Internal Medicine; ATTEND Internal Medicine
DX: M62.82 Rhabdomyolysis (principal); T45.1X5A Adverse effect of antineoplastic and immunosuppressive drugs, initial encounter; R41.82 Altered mental status, unspecified; Z92.21 Personal history of antineoplastic chemotherapy; C67.9 Malignant neoplasm of bladder, unspecified; N30.90 Cystitis, unspecified without hematuria; M48.00 Spinal stenosis, site unspecified; B95.2 Enterococcus as the cause of diseases classified elsewhere; Z88.1 Allergy status to other antibiotic agents; Z88.2 Allergy status to sulfonamides; Z88.8 Allergy status to other drugs, medicaments and biological substances; Z79.82 Long term (current) use of aspirin; Z79.899 Other long term (current) drug therapy; I49.5 Sick sinus syndrome; I48.91 Unspecified atrial fibrillation; Z95.0 Presence of cardiac pacemaker; E66.9 Obesity, unspecified; Z68.32 Body mass index [BMI] 32.0-32.9, adult

== ENCOUNTER 2019-12-26 21:07 | Emergency (ER) | payer MEDICARE ==
[~2019-12-26] VITALS: Ht 160 cm; Wt 84.1 kg
[~2019-12-26 21:07] MED LIST changes: +ALLE180T33 PO; +DSS100CA PO; +GABA-843 PO; +GUAI400T9 PO; +MACR100C43 PO; +MAGN250T7 PO; +MELA1TAB33 PO; +PEPC1TAB5 PO; +SAW1CAPS2 PO; +SENN1TAB41 PO; +SM STAB3 PO; +VITAD1000T PO
[2019-12-26] MEDS ORDERED: OXYC-141 PO (21:18)
[2019-12-26] MEDS: GASTROGRAFIN SOLUTION 30ML PO SCH ×2 (22:10→22:51)
[2019-12-26 22:13] LABS: BASO % 0.3 % (0.0-1.0); EOS # 0.2 10^3/uL (0.0-0.5); EOS % 3.5 % (0.0-3.0); HEMATOCRIT 39.6 % (42.0-52.0); HEMOGLOBIN 12.8 g/dl (13.5-17.5); LYMPH # 1.5 10^3/uL (1.5-5.0); LYMPH % 21.7 % (24.0-44.0); MEAN CORPUSCULAR HEMOGLOBIN 31.4 pg (27.0-33.0); MEAN CORPUSCULAR HGB CONC 32.3 g/dl (32.0-36.5); MEAN CORPUSCULAR VOLUME 97.1 fl (80.0-96.0); MONO # 0.6 10^3/uL (0.0-0.8); MONO % 8.4 % (0.0-5.0); NEUTROPHILS # 4.6 10^3/uL (1.5-8.5); NEUTROPHILS % 65.8 % (36.0-66.0); PLATELET COUNT, AUTOMATED 139 10^3/uL (150-450); RED BLOOD COUNT 4.08 10^6/uL (4.30-6.10); WHITE BLOOD COUNT 6.9 10^3/uL (4.0-10.0)
[2019-12-26 22:37] LABS: ALBUMIN 3.6 GM/DL (3.2-5.2); BILIRUBIN,DIRECT 0.1 MG/DL (0.0-0.2); BILIRUBIN,TOTAL 0.6 MG/DL (0.2-1.0); TOTAL PROTEIN 6.8 GM/DL (6.4-8.2)
[2019-12-26] MEDS ORDERED: ISOVUE-370 76% 100ML VIAL As Ordered ONE (23:34)
[2019-12-27] VITALS: BP 162/69
--- NOTE | 2019-12-27 00:06 | REPVR ---
PROCEDURE INFORMATION: Exam: CT Abdomen And Pelvis With Contrast Exam date and time: 12/26/2019 11:50 PM Age: 84 years old Clinical indication: Abdominal pain; Generalized; Additional info: Pain/distension TECHNIQUE: Imaging protocol: Computed tomography of the abdomen and pelvis with intravenous contrast. Radiation optimization: All CT scans at this facility use at least one of these dose optimization techniques: automated exposure control; mA and/or kV adjustment per patient size (includes targeted exams where dose is matched to clinical indication); or iterative reconstruction. Contrast material: ISOVUE 370; Contrast volume: 100 ml; Contrast route: INTRAVENOUS (IV); Other contrast: Oral, Gastrographin, 10cc gastr to 290 water x2; COMPARISON: CT ABD PELVIS WITH CONTRAST 2014-04-12 17:20 FINDINGS: Tubes, catheters and devices: AICD/Pacemaker device is present, and its leads are in appropriate position. Lungs: Dependent subsegmental pulmonary atelectasis. Heart: Cardiac enlargement. Liver: Small, less than 5 mm, liver hypodensity. Highly likely to be benign and does not require follow-up imaging or biopsy per ACR. 1 cm liver dome cyst unchanged. Gallbladder and bile ducts: Normal. No calcified stones. No ductal dilation. Pancreas: Pancreas atrophy. Spleen: Normal. No splenomegaly. Adrenals: Normal. No mass. Kidneys and ureters: Moderate renal atrophy. Numerous simple benign renal cysts, largest measures 6 cm. Stomach and bowel: Gastric antral and proximal duodenal wall thickening, correlate for infiltrating process, or gastritis and peptic ulcer disease. Multiple varicosities extending from the gastric fundus. Couple colonic diverticula are noted. Appendix: Normal appendix. Intraperitoneal space: Unremarkable. No free air. No significant fluid collection. Vasculature: Significant renal artery origin atherosclerotic calcifications and stenosis. Mild to moderate aortic and iliac artery atherosclerotic calcification. Lymph nodes: Unremarkable. No enlarged lymph nodes. Bladder: Unremarkable as visualized. Reproductive: 5.5 cm prostate gland enlargement, correlate with PSA. Prostate gland indents the bladder base. Bones/joints: Moderate to severe right and mild moderate left degenerative joint disease. Severe lumbar spondylosis with severe L4-L5 spinal stenosis. Soft tissues: Small fat protruding bilateral inguinal hernias. IMPRESSION: 1. Gastric antral and proximal duodenal wall thickening, correlate for infiltrating process, or gastritis and peptic ulcer disease. 2. Multiple moderate large varicosities extending from an transversing the gastric fundus wall. 3. Severe degenerative L4-L5 spinal stenosis. COMMENTS: Consistent with the [employer]'s Incidental Findings Committee white paper (J Am Adalberto Radiol 2018): Any incidental renal lesion less than 1.0 cm or classified as too small to characterize, or any incidental cystic renal lesion characterized as simple-appearing, is likely benign. No follow-up imaging is recommended for these lesions per consensus recommendations based on imaging criteria. Electronically signed by: Laureano Haider On 12/27/2019 00:06:33 AM
== END 2019-12-27 00:56 | disposition home or self-care (01) ==
LOC: M ED 21:07
DX: N39.0 Urinary tract infection, site not specified (principal); M51.36 Other intervertebral disc degeneration, lumbar region; I48.91 Unspecified atrial fibrillation; K21.9 Gastro-esophageal reflux disease without esophagitis; C67.9 Malignant neoplasm of bladder, unspecified; Z79.82 Long term (current) use of aspirin; Z79.891 Long term (current) use of opiate analgesic; Z79.899 Other long term (current) drug therapy; Z87.891 Personal history of nicotine dependence; Z88.1 Allergy status to other antibiotic agents; Z88.2 Allergy status to sulfonamides; Z88.8 Allergy status to other drugs, medicaments and biological substances; Z90.49 Acquired absence of other specified parts of digestive tract; Z95.0 Presence of cardiac pacemaker
CPT/HCPCS: 74177; 80047; 80076; 81001; 83690; 85025; 99284; Q9963; Q9967

== ENCOUNTER → 2020-03-16 | Outpatient (CLI) | payer MEDICARE ==
[~2020-03-16] MED LIST changes: +CYAN100T4 PO; -CYAN100T5 PO; +D31000TA2 PO; +MELA1TAB2 PO; -MELA1TAB33 PO; +OXYC-141 PO; -VITAD1000T PO
--- NOTE | 2020-03-23 09:05 | REP ---
CHEST X-RAY: 2-VIEWS HISTORY: Shortness of breath. COMPARISON: 08/24/2019. FINDINGS: A bipolar pacemaker is again seen in the right heart via the left side. Heart is not enlarged. The aorta is calcific and tortuous. The lungs are symmetrically aerated and free of infiltrate. There are degenerative changes in the thoracic spine. Pulmonary vasculature is not increased. IMPRESSION: Bipolar pacemaker. Otherwise, no acute disease. There is no an orthopedic anchor device in the left shoulder. MTDD
== END ==
LOC: M RAD 12:08
PROVIDERS: ATTEND Internal Medicine Cardiovascular Disease
DX: R06.02 Shortness of breath (principal); Z95.0 Presence of cardiac pacemaker; Z98.1 Arthrodesis status

== ENCOUNTER → 2020-08-04 | Outpatient (REF) | payer MEDICARE ==
[~2020-08-04] MED LIST changes: +GABA-282 PO; -GABA-843 PO; -MELA1TAB2 PO; +MELA1TAB31 PO
== END ==
LOC: M SMT 16:49
PROVIDERS: ATTEND Urology
DX: Z85.51 Personal history of malignant neoplasm of bladder (principal)

== ENCOUNTER → 2020-12-08 | Outpatient (CLI) | payer MEDICARE ==
[~2020-12-08] MED LIST changes: +ALLE60TA69 PO; +CO Q100C10 PO; +EQL50TAB2 PO; +FLUO40CA PO; +FLUTISP NARES; +GNP1000T11 PO; +OMEP40CA4 PO; -OMEP40CA97 PO; +ONDA-83 PO; +TORS10TA3 PO; +VITA100054 PO; +peri-colace PO; +prevagen PO
== END ==
LOC: M LABSMTC 12:46
PROVIDERS: ATTEND Anesthesiology
DX: Z01.812 Encounter for preprocedural laboratory examination (principal)

== ENCOUNTER 2020-12-13 11:25 | Day surgery (SDC) | payer MEDICARE ==
[~2020-12-13] VITALS: Ht 154.9 cm; Wt 79.3 kg
[~2020-12-13 11:25] MED LIST changes: +LR 1,000 ML IV ONE
[2020-12-13] MEDS ORDERED: NEOSPORIN TOP OINT 15GM As Ordered ONE (12:29)
[2020-12-13] MEDS ORDERED: LIDOCAINE 1% SDV 30ML VIAL As Ordered ONE (12:29)
[2020-12-13] MEDS ORDERED: VANCOMYCIN 1000MG/20ML VIAL As Ordered ONE (12:29)
[2020-12-13] MEDS ORDERED: MIDAZOLAM INJ 2MG/2ML VIAL (J2250 PER 1MG) As Ordered ONE (12:31)
[2020-12-13] MEDS ORDERED: propofoL 200 MG/20 ML VIAL As Ordered ONE (12:31)
[2020-12-13] MEDS ORDERED: fentaNYL 100 MCG/2 ML INJECTION (J3010) As Ordered ONE (12:31)
[2020-12-13] MEDS ORDERED: ONDANSETRON 4MG/2ML VIAL As Ordered ONE (12:31)
[2020-12-13] MEDS ORDERED: LIDOCAINE 2% 100MG/5ML SDV (FOR ANES.) As Ordered ONE (12:31)
[2020-12-13] MEDS: ceFAZolin SOD 1 GM in D5W MINI-BAG PLUS 50 ML IV ONE (13:15)
[2020-12-13 15:25] VITALS: BP 140/66
--- NOTE | 2020-12-13 17:55 | RO ---
OPERATIVE NOTE DATE OF OPERATION: 12/13/2020 PREOPERATIVE DIAGNOSIS: Pacemaker battery depletion. POSTOPERATIVE DIAGNOSIS: Pacemaker battery depletion. FINDINGS: Pacemaker battery depletion. PROCEDURE PERFORMED: Explantation of old and implantation of new dual-chamber pacemaker pulse generator. SURGEON: Laureano Clifton M.D. STOREKEEPER ENGINEERING: None. ANESTHESIA: 1% local (3 mL)/monitored anesthetic care. SPECIMENS: Old Medtronic dual-chamber pacemaker pulse generator. ESTIMATED BLOOD LOSS: Less than 3 mL. BLOOD PRODUCTS REPLACED: None. DRAINS: None. COMPLICATIONS: None. PROCEDURE DESCRIPTION: Patient was prepped and draped over the left pectoral region. 3M Ioban film was applied. Lidocaine 1% was used for local anesthetic. An incision was made with the PlasmaBlade through the preexisting pacemaker incision scar. This was used to dissect down to and through the anterior capsule overlying the pacemaker pulse generator. The tie-down stitch holding the pacemaker pulse generator in place was cut with a 15 blade. The pacemaker pulse generator was then removed from the pocket. I used the PEAK PlasmaBlade to free up many of the adhesions within the pacemaker pocket as I noticed the pacemaker leads were very tightly coiled at the base of the pacemaker pocket. Next, the terminal pins of the pacemaker leads were transferred one at a time from the old pulse generator to the new pulse generator and then were secured by tightening the set screws. A pull test was applied to each of the pacemaker lead to demonstrate that they were secured in the new pacemaker pulse generator. I then took a medium sized TYRX antimicrobial envelope and cut it in four pieces which were placed in the pacemaker pocket floor. Next, the extra lead material was coiled underneath the pacemaker pulse generator and placed along the pacemaker pulse generator into the pacemaker pocket with the excess lead material below and pacemaker pulse generator on top. I then took an 0 Ethibond suture and placed it to the base of the pacemaker pocket and then used that stitch to secure the pacemaker pulse generator into the pocket. The deep layer was then closed using individual sutures consisting of 2-0 Vicryl. Additional 3-0 Vicryl sutures were used to approximate the more superficial layer. The incision was closed using shruthi. Following closure with shruthi, I used a small amount of Dermabond to close very superficial skin tear along the medial aspect of the pacemaker incision which occurred when peeling back the Ioban. The patient tolerated the procedure well without any immediate complications. The pacemaker pulse generator that was removed was a Medtronic model RVDR01 Revo MRI SureScan with serial number [id number]. It was originally implanted 09/28/2010. The new pacemaker pulse generator implanted was a Medtronic Vevay XT DR MRI which had model #W1DR01 with serial number [id number]. The existing right atrial lead was a Medtronic model 5086 MRI 52 with serial number [id number] originally implanted 09/28/2010. Device based testing for the new pulse generator for the right atrial lead in bipolar configuration showed a P wave amplitude of 2.5 millivolts with lead impedance of 361 ohms and a capture threshold of 0.75 volts at 0.4 milliseconds. The existing right ventricular lead was a Medtronic model 5086 MRI 58 with serial number [id number] originally implanted 09/28/2010. Device based testing of the chronic right ventricular lead in bipolar configuration via the new pacemaker pulse generator showed R wave amplitude of 14.9 millivolts with lead impedance of 418 ohms and a capture threshold of 1.25 volts at 0.4 milliseconds.
== END 2020-12-13 15:30 | disposition home or self-care (01) ==
LOC: M SDC 11:25
PROVIDERS: ATTEND Internal Medicine Cardiovascular Disease
DX: Z45.010 Encounter for checking and testing of cardiac pacemaker pulse generator [battery] (principal); I25.10 Atherosclerotic heart disease of native coronary artery without angina pectoris; I48.91 Unspecified atrial fibrillation; G47.30 Sleep apnea, unspecified; E78.00 Pure hypercholesterolemia, unspecified; K21.9 Gastro-esophageal reflux disease without esophagitis; Z85.51 Personal history of malignant neoplasm of bladder; Z79.82 Long term (current) use of aspirin; Z79.899 Other long term (current) drug therapy; Z88.2 Allergy status to sulfonamides; Z88.0 Allergy status to penicillin; Z88.8 Allergy status to other drugs, medicaments and biological substances
CPT/HCPCS: 33228; C1785; J0690; J2250; J2405; J3010

== ENCOUNTER 2021-01-12 18:09 | Emergency (ER) | payer MEDICARE ==
[~2021-01-12 18:09] MED LIST changes: -LR 1,000 ML IV ONE
[2021-01-12 19:56] LABS: BASO % 0.1 % (0.0-1.0); EOS # 0.2 10^3/uL (0.0-0.5); EOS % 2.9 % (0.0-3.0); HEMATOCRIT 39.5 % (42.0-52.0); HEMOGLOBIN 12.8 g/dl (13.5-17.5); LYMPH # 1.1 10^3/uL (1.5-5.0); LYMPH % 13.7 % (24.0-44.0); MEAN CORPUSCULAR HEMOGLOBIN 32.2 pg (27.0-33.0); MEAN CORPUSCULAR HGB CONC 32.4 g/dl (32.0-36.5); MEAN CORPUSCULAR VOLUME 99.5 fl (80.0-96.0); MONO # 0.7 10^3/uL (0.0-0.8); MONO % 8.5 % (2.0-8.0); NEUTROPHILS % 74.4 % (36.0-66.0); PLATELET COUNT, AUTOMATED 148 10^3/uL (150-450); RED BLOOD COUNT 3.97 10^6/uL (4.30-6.10)
--- NOTE | 2021-01-12 20:07 | REP ---
INDICATION: altered mental status. COMPARISON: Comparison chest x-ray March 16, 2020.. TECHNIQUE: Sitting AP portable chest x-ray. FINDINGS: The patient is rotated to the left for the current exposure. A bipolar pacemaker is again noted in the right heart view of the left side. The heart is not felt to be enlarged. No infiltrate is seen in the lung perez. Pleural angles are sharp. Pulmonary vasculature is not increased. No acute bony abnormality. IMPRESSION: Pacemaker in place. Otherwise no acute disease. <Electronically signed by Dean Myers > 01/12/212001
[2021-01-12 20:15] LABS: ALBUMIN 3.1 GM/DL (3.2-5.2); ALT/SGPT 55 U/L (12-78); BILIRUBIN,TOTAL 0.4 MG/DL (0.2-1.0); BLOOD UREA NITROGEN 24 MG/DL (7-18); CALCIUM LEVEL 8.7 MG/DL (8.8-10.2); CARBON DIOXIDE LEVEL 30 MEQ/L (21-32); CHLORIDE LEVEL 106 MEQ/L (98-107); CREATININE FOR GFR 0.95 MG/DL (0.70-1.30); GLOMERULAR FILTRATION RATE > 60.0 (>35); GLUCOSE, FASTING 107 MG/DL (70-100); MAGNESIUM LEVEL 2.3 MG/DL (1.8-2.4); POTASSIUM SERUM 4.5 MEQ/L (3.5-5.1); SODIUM LEVEL 142 MEQ/L (136-145); TOTAL PROTEIN 5.9 GM/DL (6.4-8.2)
[2021-01-12 21:31] VITALS: BP 177/82
--- NOTE | 2021-01-13 21:24 | ECGEPIP ---
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
== END 2021-01-12 21:53 | disposition home or self-care (01) ==
LOC: M ED 18:09
DX: R53.81 Other malaise (principal); G31.84 Mild cognitive impairment of uncertain or unknown etiology; R00.1 Bradycardia, unspecified; I44.0 Atrioventricular block, first degree; I50.9 Heart failure, unspecified; Z95.0 Presence of cardiac pacemaker; I25.10 Atherosclerotic heart disease of native coronary artery without angina pectoris; E78.5 Hyperlipidemia, unspecified; K59.00 Constipation, unspecified; K21.9 Gastro-esophageal reflux disease without esophagitis; M54.9 Dorsalgia, unspecified; F33.9 Major depressive disorder, recurrent, unspecified; Z88.1 Allergy status to other antibiotic agents; Z88.2 Allergy status to sulfonamides; Z88.8 Allergy status to other drugs, medicaments and biological substances; Z79.899 Other long term (current) drug therapy

== ENCOUNTER → 2021-02-02 | Outpatient (REF) | payer MEDICARE | LOC: M SMT 18:04 | PROVIDERS: ATTEND Urology | DX: Z85.51 Personal history of malignant neoplasm of bladder (principal) ==

== ENCOUNTER → 2021-02-13 | Outpatient (REF) | payer MEDICARE ==
[2021-02-13 19:19] LABS: APPEARANCE, URINE CLOUDY (CLEAR); BACTERIA, URINE AUTO NEGATIVE (NEGATIVE); BILIRUBIN, URINE AUTO NEGATIVE (NEGATIVE); BLOOD, URINE BLOOD 1+ (NEGATIVE); COLOR, URINE YELLOW (YELLOW); GLUCOSE, URINE (UA) AUTO NEGATIVE (NEGATIVE); KETONE, URINE AUTO NEGATIVE (NEGATIVE); LEUKOCYTE ESTERASE, URINE AUTO 2+ (NEGATIVE); MUCUS, URINE SMALL (NEGATIVE); NITRITE, URINE AUTO NEGATIVE (NEGATIVE); PROTEIN, URINE AUTO 2+ mg/dL (NEGATIVE); RBC, URINE AUTO 9 /HPF (0-3); SPECIFIC GRAVITY URINE AUTO 1.012 (1.002-1.035); SQUAMOUS EPITHELIAL CELL UR AU 1 /HPF (0-6); UROBILINOGEN, URINE AUTO 0.2 mg/dL (0.0-2.0); WBC, URINE AUTO 145 /HPF (0-3)
== END ==
LOC: M SMT 17:11
PROVIDERS: ATTEND Urology
DX: R30.0 Dysuria (principal)

== ENCOUNTER → 2021-03-21 | Outpatient (REF) | payer MEDICARE ==
[~2021-03-21] MED LIST changes: -GENT0.3G OU; +HYPR10GE OU
[2021-03-21 18:12] LABS: APPEARANCE, URINE CLOUDY (CLEAR); BACTERIA, URINE AUTO NEGATIVE (NEGATIVE); BILIRUBIN, URINE AUTO NEGATIVE (NEGATIVE); BLOOD, URINE BLOOD NEGATIVE (NEGATIVE); CALCIUM OXALATE CRYSTALS LARGE; COLOR, URINE YELLOW (YELLOW); GLUCOSE, URINE (UA) AUTO NEGATIVE (NEGATIVE); KETONE, URINE AUTO NEGATIVE (NEGATIVE); LEUKOCYTE ESTERASE, URINE AUTO TRACE (NEGATIVE); NITRITE, URINE AUTO NEGATIVE (NEGATIVE); PROTEIN, URINE AUTO NEGATIVE (NEGATIVE); RBC, URINE AUTO 3 /HPF (0-3); SQUAMOUS EPITHELIAL CELL UR AU 1 /HPF (0-6); UROBILINOGEN, URINE AUTO 0.2 mg/dL (0.0-2.0); WBC, URINE AUTO 10 /HPF (0-3)
== END ==
LOC: M SMT 16:48
PROVIDERS: ATTEND Urology
DX: N39.0 Urinary tract infection, site not specified (principal)